=== PATIENT | male | born 1960 | race Caucasian/White ===

== ENCOUNTER 2018-10-28 10:36 | Inpatient (IN) ==
[2018-10-28] MEDS ORDERED: RAPID SEQUENCE INDUCTION BAG ONE (10:37)
[2018-10-28] MEDS ORDERED: ALBUT/IPRATROP 3MG/0.5MG NEB 3 ML VIAL ONE (10:37)
[2018-10-28] MEDS ORDERED: ALBUTEROL 0.083% NEBU SOLN 3 ML VIAL NEB STA (10:38)
[2018-10-28] MEDS ORDERED: IPRATROPIUM BROMIDE NEB SOLN 0.02% 2.5 ML VIAL NEB STA (10:38)
[2018-10-28] MEDS ORDERED: MAGNESIUM SULFATE 1GM / D5W BAG IV ONE (10:38)
[2018-10-28] MEDS: MAGNESIUM SULFATE / D5W 1 GM/100 ML BAG IV SCH ×2 (10:45→11:00)
[2018-10-28 11:03] LABS: Basophils # (auto) 0.03 K/uL (0-0.2); Basophils % (auto) 0.1 %; Eosinophils # (auto) 0.06 K/uL (0-0.5); Eosinophils % (auto) 0.3 %; Hemoglobin 15.5 g/dL (14.0-18.0); Immature Granulocytes # (auto) 0.08 K/uL (0.00-0.02); Immature Granulocytes % (auto) 0.4 %; Lymphocytes # (auto) 2.63 K/uL (1.2-3.4); Lymphocytes % (auto) 12.8 %; Mean Corpuscular Hgb Conc 33.7 g/dL (32-36); Mean Corpuscular Volume 89.1 fL (80-100); Mean Platelet Volume 9.4 fL (7.4-10.4); Monocytes # (auto) 2.25 K/uL (0.11-0.59); Monocytes % (auto) 10.9 %; Neutrophils # (auto) 15.55 K/uL (1.4-6.5); Neutrophils % (auto) 75.5 %; Platelet Count 226 K/uL (130-400); RDW Standard Deviation 45.9 fL (36.4-46.3); Red Blood Count 5.16 M/uL (4.7-6.1)
[2018-10-28] MEDS ORDERED: PROPOFOL IV EMULSION 10 MG/ML 100 ML VIAL IV ONE (11:08)
[2018-10-28 11:19] LABS: BUN Creatinine Ratio 8.1 (10-20); Blood Urea Nitrogen 6 mg/dl (7-18); Calcium 9.1 mg/dl (8.5-10.1); Carbon Dioxide 30 mmol/L (21-32); Chloride 99 mmol/L (98-107); Creatinine Clr Calc Pharmacy 107.3 ml/min; Est GFR (African American) 120.7; Est GFR (Non-African American) 104.2; Glucose 154 mg/dl (70-99); INR 1.1 (0.9-1.1); Partial Thromboplastin Ratio 1.1; Partial Thromboplastin Time 30.6 Seconds (21.0-31.0); Potassium 3.8 mmol/L (3.5-5.1); Sodium 136 mmol/L (136-145)
[2018-10-28] MEDS ORDERED: Nursing to Pharmacy Communication ONE (11:20)
--- NOTE | 2018-10-28 11:20 | XRay Report ---
XR chest 1V portable HISTORY: ETT placement COMPARISON: Chest 10/28/2018. FINDINGS: The endotracheal tube terminates approximate 5 cm from the feliciano. No pneumothorax. No pleu ral effusions. The heart is normal in size. Mild diffuse interstitial thickening is again noted. This demonstrates an upper lobe predominant reticulonodular pattern. IMPRESSION: 1. Endotracheal tube terminates 5 cm from the feliciano. 2. Reticulonodular interstitial thickening with upper lobe predominance. This could be due to chronic interstitial process or an atypical pneumonitis. Electronically signed by: Rodrigo Hobbs M.D. 10/28/2018 11:19 AM
[2018-10-28 11:23] LABS: Troponin I < 0.015 ng/ml (0-0.045)
[2018-10-28] MEDS ORDERED: fentaNYL DRIP 1,250 MCG/250 ML BAG IV SCH (11:24)
--- NOTE | 2018-10-28 11:25 | XRay Report ---
XR chest 1V portable CLINICAL HISTORY: Shortness of breath COMPARISON STUDY: No previous studies for comparison. FINDINGS: The heart is normal in size. There is reticulonodular interstitial thickening with an upper lung zone predominance. This is of uncertain chronicity. There is no failure. There are no pleural e ffusions.[ IMPRESSION: Reticulonodular interstitial thickening with an upper lung zone predominance. Electronically signed by: Zi Hansen M.D. 10/28/2018 11:23 AM
[2018-10-28] MEDS ORDERED: ALBUT/IPRATROP 3MG/0.5MG NEB 3 ML VIAL NEB STA (11:37)
--- NOTE | 2018-10-28 11:37 | Critical Care Consultation ---
Date of Consultation October 28, 2018 Assessment & Plan (1) Admitted to intensive care unit: Saeed Corral is a 58 y/o male with history of asthma and current smoker, who presented for dyspnea requiring intubation with mechanical ventilation. Neuro Reviewed PDMP, gets Dilaudid for pain pump; daily Morphine equivalent is 15.67. Propofol Cardiac/Vascular Review of [employer] EMR - most recent records from 2014, but listed is a diagnosis of HTN Pulm CTA chest to rule out PE in ED prior to transfer to ICU. Currently on mechanical ventilator Solumedrol 40mg q6h Will treat as COPD exacerbation GI Ranitidine 50mg IV q8h Renal/Lytes Creatinine WNL No significant electrolyte abnormalities [place] in place Endo Hx DM2 from chart review hyperglycemic management per unit protocol Heme Leukocytosis on presentation most likely demargination from stress CBC otherwise unremarkable ID Ceftriaxone 1gm q24h and Levaquin 750mg q24h ordered Lines 20g right AC 18g left AC DVT ppx: lovenox 40mg qday Resuscitation status - Full Code Supervising Physician Co-Signing Physician Notes Dr. Perkins was resident physician during care of patient. I separately evaluated patient for vieyra portions of the history and the exam. I was present during the critical portion of medical decision making, and I discussed the case with the resident. I generally agree with the findings and plan. Patient has a history of reactive airway disease, continued tobacco abuse. I am empirically starting him on Rocephin and Levaquin as well as steroids. I consented the patient's via telephone for bronchoscopy. I was informed he is increasing tenacity of his secretions being suctioned. Therefore we proceeded with bronchoscopy and obtained a BAL specimen. I am still treating him for possible community-acquired pneumonia and checking for possible influenza which I think is still unlikely but warrants further evaluation. I have personally spent 45 minutes of critical care time in the direct management of this patient. This is a life/limb threatening event. This includes time spent evaluating patient, direct bedside care, chart review, placing orders, interpretation of diagnostic studies, discussion with consultan ts, patient, and/or family members regarding treatment decisions, as well as other required patient management activities. This time is exclusive of all separately billable procedures, and teaching time and separate from and in addition to any other critical care service time. History of Present Illness Reason for Consultation: Acute respiratory failure History of Present Illness History Limited by: Mechanical Ventilation. History provided by ED staff, patient presented with dyspnea. Endorsed smoking history and also endorsed no prior intubations or hospitalizations for asthma. Allergies Allergy/AdvReac Type Severity Reaction Status Date / Time Penicillins Allergy Unknown Verified 10/28/18 12:06 Home Medications Home Medications Medication Instructions Recorded Confirmed Type pastyyuuwvx-csrihdqir-jdroxews 1 inh INHALATION DAILY 10/28/18 10/28/18 History [Trelegy Ellipta] Patient History Medical History Failed back syndrome of thoracic spine (Chronic) Chronic pain (Chronic) COPD (chronic obstructive pulmonary disease) (Chronic) Tobacco abuse (Chronic) Surgical History History of hernia repair (Chronic) History of back surgery (Chronic) T6-7 Laminectomy History of cholecystectomy (Chronic) Family History Mother Diabetes Hypertension Father No problems noted. Social History Preferred Language: Bangladeshi Communication Ability: Effective Communication Ability Comment: pt intubated Beliefs That Will Affect Care: None marital status: Current Living Situation: Spouse and Family current occupational status: employed current occupation: [email or web address] Other Information That Helps Us Care for You: No Feels Safe at Home: Yes Smoking Status: Current every day smoker Tobacco Type: cigarettes Age Started Using Tobacco: 16 packs per day: 1 Years Smoked: 40 Cigarettes Per Day: 20 Do You Dip or Chew Tobacco: No Second Hand Exposure: Yes Tobacco Cessation Education Requested by Patient: No Hx Alcohol Use: No Hx Substance Use: No Review of Systems Review of Systems: Unobtainable due to endotracheal tube Physical Exam Constitutional: + mechanically ventilated Neck: normal visual inspection and trachea midline Respiratory: Auscultation: + diminished lung sounds and + wheezes (diffuse) Cardiovascular: Rate/Rhythm: regular rate and regular rhythm Extremities: no pedal edema Gastrointestinal (Abdomen): RLQ old well healed surgical scar with palpable chief medical physicist subq appears consistent with pain pump. Skin: no rashes, warm and dry Neurologic: In ED, does not open eyes to voice. Psychiatric: unable to assess Results & Data Vital Signs (Past 12 Hours) Vital Signs Pulse Pulse Resp BP BP Pulse Ox 10/28/18 11:10 110 H 179/104 H 98 10/28/18 11:04 100 10/28/18 10:55 120 H 22 124/88 100 10/28/18 10:46 22 155/108 H 100 PG Care Time/CCT Total # of Minutes Spent Total Time Spent: 45 Total Time Spent with Patient: Total time spent is greater than 50% in coordination of care (as documented) at patient's floor/unit and/or counseling patient:
[2018-10-28] MEDS ORDERED: DEXTROSE 50% 50 ML SYRINGE IV PRN (11:44)
[2018-10-28] MEDS ORDERED: GLUCAGON FOR INJ 1 MG VIAL SQ PRN (11:44)
[2018-10-28] MEDS ORDERED: CARBOHYDRATES FOR HYPOGLYCEMIA PO PRN (11:44)
[2018-10-28] MEDS ORDERED: LEVALBUTEROL HCL 1.25 MG/3 ML NEB INH PRN (11:44)
[2018-10-28] MEDS ORDERED: GLUCOSE 10 TABS/TUBE PO PRN (11:44)
[2018-10-28] MEDS ORDERED: GLUCOSE 40% GEL 15 GM TUBE PO PRN (11:44)
[2018-10-28] MEDS ORDERED: PHARMACY GLYCEMIC MGMT CONSULT PRN (11:52)
[2018-10-28 12:08] LABS: iSTAT Venous Carbon Dioxide 31 mEq/l (24-31)
[2018-10-28] MEDS ORDERED: OPTIRAY 320 125ml IV PRN (12:25)
[2018-10-28] MEDS ORDERED: LORazepam 2 MG/4 ML VIAL IV STA (12:39)
[2018-10-28] MEDS ORDERED: LORazepam 2 MG/4 ML VIAL ONE (12:40)
--- NOTE | 2018-10-28 12:40 | History & Physical Report ---
Date of Service October 28, 2018 Assessment & Plan (1) Admitted to intensive care unit: (2) Acute respiratory failure: (3) Acute respiratory acidosis: (4) COPD exacerbation: This is 58 yr old M who has a known PMH of COPD, tobacco abuse, chronic back pain with pain pump who presents to [facility] ED in acute respiratory distress. Pt required intubation and mechanical ventilation upon arrival to ED Initial lab work reveals leukocytosis WBC 20.60k, H&H stable at 15.5 and 46.0, platelet 226, VBG pH 7.25, VBG PCO2 67 consistent with respiratory acidosis, elevated glucose 154 his troponin was WNL. Chest x-ray revealed reticulonodular interstitial thickening with upper lobe predominance which could represent chronic interstitial process or an atypical pneumonitis Per current CMS guidelines patient met SIRS criteria on arrival due to leukocytosis of 20,000, tachycardia, and tachypnea tachycardia/tachypnea likely in setting of acute respiratory failure; however sepsis not entirely ruled out Blood cultures and lactic acid ordered He has known history of recurrent pneumonia the past 3 to 4 years per CTA chest pending to rule out possible pneumonia Pt admitted to ICU under service of Service Or Work Dispatcher Chief Dr. Gooden, please refer to his documentation for further details regarding assessment and plan will obtain further records from Pending sale to [facility] and PCP Dr. Garcia (5) Tobacco abuse: Per patient smokes 1 pack/day for approximately [address] on nicotine patch (6) Chronic pain: pain pump RLQ PDMP reviewed gets Dilaudid for pain pump; daily Morphine equivalent is 15.67 (7) DVT prophylaxis: Lovenox Disposition: to be determined Follow up: PCP Dr. Jerson Garcia in [place], [place] Patient was seen and examined in collaboration with Dr. Coe, please see addendum Starting 10/29/2018 patient be under the care of Dr. Farmer History of Present Illness Chief Complaint: Status Asthmaticus Primary Care Provider: Jerson Garcia MD This is 58 yr old M who has a known PMH of COPD, tobacco abuse, chronic back pain with pain pump who presents to [facility] ED in acute respiratory distress. Pt was at home when approx at 8am he developed worsening SOB. His SOB started yesterday. Son at home contacted EMS. He received multiple nebulizer tx and methylprednisolone inj 125mg while in field. Place on CPAP with no relief. When arrived at ED he was still noticably dyspneic despite 2 rounds of duonebs which prompted staff to intubate. Hx obtain from . Unable to obtain hx or ROS from patient. According to this isn't, "new." He has required multiple hospitalization in past 3-4 years at [facility] and [facility] due to acute respiratory failure and PNA, but never required intubation. denies pt has pmh of HTN, T2DM, CAD, CVA. He lives at home with , [place], +tobacco abuse for 40 years, 1ppd, no elicit drug use Past surgeries including T6-7 laminectomy, cholecystectomy, hernia repair, pain pump FH: Mother and father both still living. Mother +HTN and DM; Father PMH unknown Allergies Allergy/AdvReac Type Severity Reaction Status Date / Time Penicillins Allergy Unknown Verified 10/28/18 12:06 Home Medications Home Medications Medication Instructions Recorded Confirmed Type bbbaannpntk-cmutgcrnt-kgyifckn 1 inh INHALATION DAILY 10/28/18 10/28/18 History [Elzbieta Weinberg] Past Med/Surg History Medical History Failed back syndrome of thoracic spine (Chronic) Chronic pain (Chronic) COPD (chronic obstructive pulmonary disease) (Chronic) Tobacco abuse (Chronic) Surgical History History of hernia repair (Chronic) History of back surgery (Chronic) T6-7 Laminectomy History of cholecystectomy (Chronic) Family History Mother Diabetes Hypertension Father No problems noted. Social History Preferred Language: Bhutanese Communication Ability: Effective Communication Ability Comment: pt intubated Beliefs That Will Affect Care: None marital status: Current Living Situation: Spouse and Family current occupational status: employed current occupation: [employer] Other Information That Helps Us Care for You: No Feels Safe at Home: Yes Smoking Status: Current every day smoker Tobacco Type: cigarettes Age Started Using Tobacco: 16 packs per day: 1 Years Smoked: 40 Cigarettes Per Day: 20 Do You Dip or Chew Tobacco: No Second Hand Exposure: Yes Tobacco Cessation Education Requested by Patient: No Hx Alcohol Use: No Hx Substance Use: No Review of Systems Review of Systems: Unobtainable due to endotracheal tube and Unobtainable due to reduced consciousness Physical Exam Physical Exam: Gen: WD/WN, M, lying in bed, + Intubated Head: Normocephalic, Atraumatic Eyes: Sclera normal, no conjunctival injection ENT: +ET Tube, unable to assess oropharnyx Neck: no JVD, Bruit, trachea midline Resp: chest normal to inspection. Clear to auscultation b/l with diminished breath sounds b/l, +intubated. Normal insp/exp effort, no accessory muscle use CV: tachycardic rate, regular rhythm, no murmur, rub, gallop, or ectopy Abd: RLQ scar noted, palpable device consistent with pain pump, +BS x 4, soft, nontender, nondistended Musculoskeletal:extremities x 4 normal to inspection Extremities: No edema bilaterally Skin: warm, moist, no rash, negative turgor, cap refill < 2sec Neuro: sedated, intubated doesn't respond to verbal stimuli : deferred Results & Data Vital Signs (Past 12 Hours) Vital Signs Pulse Pulse Resp BP BP Pulse Ox 10/28/18 11:49 113 H 20 166/97 H 95 10/28/18 11:32 108 H 20 99 10/28/18 11:10 110 H 179/104 H 98 10/28/18 11:04 100 10/28/18 10:55 120 H 22 124/88 100 10/28/18 10:46 22 155/108 H 100 10/28/18 10:45 122 H 122 H 30 H 97 Laboratory Results Short CBC 10/28/18 Range/Units 10:51 WBC 20.60 H (4.8-10.8) K/uL Hgb 15.5 (14.0-18.0) g/dL Hct 46.0 (42-52) % Plt Count 226 (130-400) K/uL BMP 10/28/18 10:51 Sodium 136 Potassium 3.8 Chloride 99 Carbon Dioxide 30 BUN 6 L Creatinine 0.71 Glucose 154 H Calcium 9.1 Cardiac Enzymes 10/28/18 Range/Units 10:51 Troponin I < 0.015 (0-0.045) ng/ml Diagnostic Findings CXR: IMPRESSION: 1. Endotracheal tube terminates 5 cm from the feliciano. 2. Reticulonodular interstitial thickening with upper lobe predominance. This could be due to chronic interstitial process or an atypical pneumonitis. Medications Administered Magnesium Sulfate/Dextrose (Magnesium Sulfate / D5w) 1 gm in 100 mls @ 100 mls/hr IV Q1H TARI Stop: 10/28/18 12:44 Last Infusion: 10/28/18 11:15 Dose: 0 mls/hr Documented by: [id number] Admin: 10/28/18 11:00 Dose: 100 mls/hr Documented by: [id number] Infusion: 10/28/18 11:00 Dose: 0 mls/hr Documented by: [id number] Admin: 10/28/18 10:45 Dose: 100 mls/hr Documented by: [id number] Fentanyl Citrate (Fentanyl Drip) 1,250 mcg in 250 mls @ 5 mls/hr IV .Q24H TARI; Protocol Stop: 11/11/18 11:23 Last Admin: 10/28/18 11:24 Dose: 25 mcg/hr, 5 mls/hr Documented by: [id number] Cosigned by: [id number] Ioversol (Optiray 320 125ml) 120 ml IV ONCE PRN PRN Reason: Interaction Checking Stop: 11/01/18 12:24 Last Admin: 10/28/18 12:26 Dose: 120 ml Documented by: [id number] Discontinued Medications Albuterol (Ventolin 0.083% 2.5mg/3ml) 2.5 mg NEB NOW STA Stop: 10/28/18 10:39 Last Admin: 10/28/18 11:36 Dose: Not Given Documented by: [id number] Ipratropium West (Atrovent 0.02% 0.5mg/2.5ml) 1 mg NEB NOW STA Stop: 10/28/18 10:39 Last Admin: 10/28/18 11:36 Dose: Not Given Documented by: [id number] Magnesium Sulfate/Dextrose (Magnesium Sulfate / D5w) Confirm Administered Dose 2 gm IV .STK-MED ONE Stop: 10/28/18 10:39 Last Admin: 10/28/18 10:42 Dose: 2 gm Documented by: [id number] Miscellaneous () Confirm Administered Dose 1 ea .ROUTE .STK-MED ONE Stop: 10/28/18 10:38 Last Admin: 10/28/18 11:04 Dose: 1 ea Documented by: [id number] Miscellaneous Information (Nursing To Pharmacy Communication) 1 ea N/A ONE ONE Stop: 10/28/18 11:21 Last Admin: 10/28/18 11:24 Dose: 1 ea Documented by: [id number] Propofol (Diprivan) Confirm Administered Dose 1,000 mg IV .STK-MED ONE Stop: 10/28/18 11:09 Last Admin: 10/28/18 11:14 Dose: 1,000 mg Documented by: [id number] Cosigned by: [id number] ECG Rate (beats per minute): 116 Rhythm: sinus tachycardia Findings: + nonspecific-ST abn Code Status & VTE Plan Code Status Full Code VTE Prophylaxis Plan VTE Prophylaxis will be ordered: Yes Supervising Physician Co-Signing Physician Notes I have seen and examined the patient and have discussed the case with the provider above. I agree with the assessment and plan as stated. Mr. An is a lifelong smoker who still actively smoking and has had a recurrent issue with pneumonia over the past 3 to 4 years per his . He presented today after EMS was called to his home for acute respiratory distress. CPAP and nebulizers were attempted in the field without success and he was continuing to tire in the ER. Additional BiPAP and nebulizers were attempted however he ultimately was intubated. Little history could be taken prior to this and the majority of history was gathered from his . At this time he is intubated and sedated on propofol and is unable to give a history. Physical exam reveals hypotension secondary to propofol. He is intubated and sedated. Coarse rhonchi heard on auscultation of bilateral lung ramos. S1 and S2 were heard without evidence of murmur, gallop or rub. Abdomen was soft and nondistended. Pupils are equal and reactive to light. Skin is warm and dry and without jaundice. Assessment includes acute respiratory failure secondary to COPD exacerbation in the setting of active smoking. Continue mechanical ventilation and nicotine patch. Cont IV Solumedrol and antibiotics including Rocephin and Levaquin. Cont ICU monitoring. Family was updated at the bedside. DO Saravanan
--- NOTE | 2018-10-28 13:03 | CT Scan Report ---
CHEST CTA for PULMONARY ARTERIES CT DOSE: 526.04 mGycm HISTORY: Shortness of breath. TECHNIQUE: Multiaxial CT images of the chest were performed following the intravenous administration of contrast to evaluate the pulmonary arteries. Maximal intensity projection images were also obtaine d. A dose lowering technique was utilized adhering to the principles of ALARA. COMPARISON STUDY: None. FINDINGS: An intrathecal catheter is identified. The tip is looped at the T12 level. Endotracheal tub e terminates 4 cm from the feliciano. Posterior fusion defect at T8. No suspicious lytic or blastic osse ous lesions. Punctate calcification within the right hepatic lobe. The visualized spleen and adrenal glands are unremarkable. No pleural or pericardial effusions. The heart is normal in size. Normal eso phagus. Multiple mildly enlarged mediastinal and bilateral hilar lymph nodes. Dominant subcarinal lym ph node measures 2.2 x 1.3 cm. Dominant hilar lymph node on the right measures 1.4 x 1.2 cm. Normal c aliber thoracic aorta with no evidence for dissection. Nondiagnostic evaluation of the left lower lob e subsegmental pulmonary arteries due to the respiratory motion. Otherwise, no filling defects within the remaining pulmonary arteries to suggest pulmonary embolus. No pneumothorax. Diffuse tree-in-bud nodular opacities seen throughout the lungs with mild interstitial thickening. This demonstrates an u pper lobe predominance mild emphysema. Linear area of consolidation/atelectasis right upper lobe ante riorly. Partial opacification of the left lower lobe bronchi and bronchus intermedius with a small am ount of mucoid material. IMPRESSION: 1. No evidence for pulmonary embolus. 2. Mild mediastinal and bilateral hilar lymphadenopathy. There is also diffuse tree-in-bud nodular op acities demonstrating an upper lobe predominance and a linear area of consolidation within the right upper lobe anteriorly. This is nonspecific and can be seen in the setting of sarcoidosis, an atypical infectious process, or a panbronchiolitis. Bronchoscopy is recommended for further evaluation. 3. Small amount of mucoid material within the bronchi. 4. Emphysema. 5. Endotracheal tube terminates 4 cm from the feliciano. 6. An intrathecal catheter tip is looped at the T12 level. Electronically signed by: Rodrigo Hobbs M.D. 10/28/2018 1:02 PM
[2018-10-28] MEDS ORDERED: INSULIN GLARGINE SOLOSTAR 100 UNITS/ML 3 ML PEN SC ONE (13:30)
[2018-10-28] MEDS ORDERED: PROPOFOL 1,000 MG/100 ML VIAL IV STA (13:47)
[2018-10-28] MEDS ORDERED: ICU PROTOCOL FOR HYPERGLYCEMIA PRN (13:47)
[2018-10-28] MEDS ORDERED: fentaNYL citrate 100 MCG/2 ML VIAL IV PRN (13:47)
[2018-10-28] MEDS ORDERED: ROCURONIUM BROMIDE 10 MG/ML 10 ML VIAL IV ONE (13:55)
[2018-10-28] MEDS ORDERED: ETOMIDATE 2 MG/ML 20 ML VIAL IV ONE (13:55)
--- NOTE | 2018-10-28 15:31 | Pharmacy Report ---
Pharmacy Glycemic Short Note 2 - Date of Service October 28, 2018 - Glycemic Short BSG Results (Last 24 hours): 10/28/18 10/28/18 10:51 14:43 Glucose 154 H POC Glucose 197 H OUTPATIENT ANTIDIABETIC REGIMEN: * n/a; denied h/o DM * A1c = ? ASSESSMENT: * Patient being admitted to ICU due to respiratory failure secondary to asthma exac / COPD exac, respiratory acidosis requiring intubation in the ED * Will continue Cigarette Making Examiner's orders for 1st dose of Lantus and Novolog - reasonable starting points * Will adjust Novolog dosing frequency and BSGs to Q 4 hrs, will also continue Lantus BID but per sliding scale given uncertain h/o DM and current stressors * Will start insulin drip if BSG > 200 x 1 PLAN FOR INPATIENT GLYCEMIC CONTROL: * A1c with next lab draw * Basal insulin * Lantus 10 units x 1 then SQ BID per the following scale: * 0 units if less than 140 * 6 units if 140-200 * 10 units if > 200 (and begin IV insulin drip) * Bolus insulin * NovoLog per scale Q 4 hrs * Goal Range: Low 110 mg/dL - High 160 mg/dL * Correction Factor: 20 mg/dL/unit * Nutritional / Prandial insulin per carb ratio of 1 unit per 30 grams CHO consumed PLAN FOR DISCHARGE: * to be determined
--- NOTE | 2018-10-28 16:26 | XRay Report ---
XR KUB/Abdomen 1 view CLINICAL HISTORY: Verify OGT placement tube position COMPARISON STUDY: No previous studies for comparison. FINDINGS: Nasogastric tube within the distal gastric body. IMPRESSION: Nasogastric tube within the distal gastric body The above report was generated using voice recognition software. It may contain grammatical, syntax or spelling errors. Electronically signed by: Ken Hickman M.D. 10/28/2018 4:25 PM
[2018-10-28] MEDS ORDERED: INSULIN ASPART 100 UNITS/ML 3 ML PEN SC SCH (16:30)
[2018-10-28] MEDS: ENOXAPARIN INJ 40 MG/0.4 ML SYR SQ SCH (16:42)
[2018-10-28] MEDS: NICOTINE 21 MG/24 HR TDSY TD SCH (16:42)
[2018-10-28] MEDS: INSULIN ASPART 100 UNITS/ML 3 ML PEN SC SCH ×2 (16:47→20:13)
--- NOTE | 2018-10-28 17:29 | Emergency Department Note ---
Entered by Saeed Ruano acting as a scribe for History of Present Illness General Chief complaint: Shortness of Breath/Dyspnea Time Seen by Provider: 10/28/18 10:38 Source: EMS History of Present Illness Provider complaint: Shortness of breath Onset (ago): day(s) 1 Location: chest Pain Consistency: + constant and + other (Worsening) Relieved By: + none Exacerbated By: + none Associated symptoms: + other (Positive fatigue) The patient is a 58 year old male who presents to the Emergency Room via EMS with complaints of constant shortness of breath that started yesterday but bec julio worse this morning about 2 hours ago, per EMS. Per EMS, the patient started Mucinex and has bee complaining of itchiness, but his symptoms are not anaphylactic. En route the patient received 4 Albuterols, 1 Duoneb, and 125mg of Solumedrol. TThe patient notes he has a history of asthma but has never had to be intubated or brought to the ICU because of it. The patient is a smoker. HPI is limited secondary to the patient's clinical condition and respiratory distress. Home Medications Home Medications Medication Instructions Recorded Confirmed Type punqlhlqwmc-[id number]-tcqxsqon 1 inh INHALATION DAILY 10/28/18 10/28/18 History [Trelegy Ellipta] Allergies Allergy/AdvReac Type Severity Reaction Status Date / Time Penicillins Allergy Unknown Verified 10/28/18 12:06 Past Med/Surg History Medical History Failed back syndrome of thoracic spine (Chronic) Chronic pain (Chronic) COPD (chronic obstructive pulmonary disease) (Chronic) Tobacco abuse (Chronic) Surgical History History of hernia repair (Chronic) History of back surgery (Chronic) T6-7 Laminectomy History of cholecystectomy (Chronic) Family History Mother Diabetes Hypertension Father No problems noted. Social History Preferred Language: Grenadian Communication Ability: Effective Communication Ability Comment: pt intubated Beliefs That Will Affect Care: None marital status: Current Living Situation: Spouse and Family current occupational status: employed current occupation: [employer] Other Information That Helps Us Care for You: No Feels Safe at Home: Yes Smoking Status: Current every day smoker Tobacco Type: cigarettes Age Started Using Tobacco: 16 packs per day: 1 Years Smoked: 40 Cigarettes Per Day: 20 Do You Dip or Chew Tobacco: No Second Hand Exposure: Yes Tobacco Cessation Education Requested by Patient: No Hx Alcohol Use: No Hx Substance Use: No Review of Systems Other Unable to obtain due to the patient's respiratory distress and acute clinical presentation. Physical Exam Vital Signs Vital Signs - 24 hr 10/28/18 10:45 10/28/18 10:46 10/28/18 10:53 Sepsis Recent Fever Within 48 Hours No Sepsis New/Unexplained Change in Mental Status No Sepsis Action Taken by Nursing No Action Required Pulse Rate 122 H Pulse Rate [Apical] 122 H Pulse Rate from SpO2 Sensor Respiratory Rate 30 H 22 Respiratory Effort / Characteristics Spontaneous Accessory Muscle Use Labored Short of Breath Non-Labored Respiratory Depth Shallow Respiratory Pattern Tachypnea Blood Pressure 155/108 H Blood Pressure [Right Arm] Blood Pressure Mean 123 Blood Pressure Mean [Right Arm] Pulse Oximetry 97 100 Oxygen Delivery Method BiPAP BiPAP BiPAP Oxygen Flow Rate Fraction of Inspired Oxygen 100 10/28/18 10:55 10/28/18 11:04 10/28/18 11:06 Sepsis Recent Fever Within 48 Hours Sepsis New/Unexplained Change in Mental Status Sepsis Action Taken by Nursing Pulse Rate Pulse Rate [Apical] 120 H Pulse Rate from SpO2 Sensor Respiratory Rate 22 Respiratory Effort / Characteristics Respiratory Depth Respiratory Pattern Blood Pressure Blood Pressure [Right Arm] 124/88 Blood Pressure Mean Blood Pressure Mean [Right Arm] 100 Pulse Oximetry 100 100 Oxygen Delivery Method BiPAP Ambu-Bag Oxygen Flow Rate 100 Fraction of Inspired Oxygen 10/28/18 11:10 Sepsis Recent Fever Within 48 Hours Sepsis New/Unexplained Change in Mental Status Sepsis Action Taken by Nursing Pulse Rate 110 H Pulse Rate [Apical] Pulse Rate from SpO2 Sensor 117 H Respiratory Rate Respiratory Effort / Characteristics Respiratory Depth Respiratory Pattern Blood Pressure 179/104 H Blood Pressure [Right Arm] Blood Pressure Mean 129 Blood Pressure Mean [Right Arm] Pulse Oximetry 98 Oxygen Delivery Method Mechanical Vent Oxygen Flow Rate Fraction of Inspired Oxygen GENERAL: He appears distressed. Patient on CPAP HENT: Exam performed. - Head: Normocephalic and atraumatic. - Right Ear: External ear normal. No mastoid tenderness. - Left Ear: External ear normal. No mastoid tenderness. - Mouth/Throat: The oropharynx is clear and moist. No trismus in the jaw. No dental abscesses or uvula swelling. No oropharyngeal exudate or tonsillar abscesses. EYES: Conjunctivae and EOM are normal. Pupils are equal, round, and reactive to light. Right eye exhibits no discharge. Left eye exhibits no discharge. No scleral icterus. NECK: Supple CV: Tachycardic rate, regular rhythm, normal heart sounds and intact distal pulses. There is no peripheral edema. Palpable radial pulses bue. PULM/CHEST: Severe respiratory distress, tachypneic on CiPAP. Decreased breath sounds bilaterally, scant respiratory wheezing bilaterally. - Chest Wall: He exhibits no tenderness. ABD: Soft nontender. MUSC/SKEL: Normal range of motion. There is no peripheral edema, tenderness or deformity. LYMPH: No cervical adenopathy. NEURO: Motor and sensation grossly intact. SKIN: Skin is warm and dry. He is not diaphoretic. Procedures Intubation Time out performed: Yes sedative: Etomidate Mg Given: 20 paralytic: Rocuronium Mg Given: 70 Laryngoscope: Vicente (4) ET Tube Size: 7 ET Tube Uncuffed: No Tube Secured Depth (cm): 23 Tube Secured Location: lips Tube Placement Confirmation: visualized tube passing through cords, equal breath sounds bilaterally, no breath sounds over epigastrium and confirmation by capnometry Patient Tolerated Procedure: well Intubation Complications: none Course 1035: Past medical records reviewed. The patient was evaluated in room B01, and a complete history and physical examination were performed. Patient was switched to BiPAP. Received a total of 12.5 mg of albuterol, 0.5 mg of Atrovent, and 125 mg of Solu-Medrol in route to the emergency department. Patient will be given an additional dose of albuterol as well as Atrovent. Magnesium 2 g IV piggyback was also given for patient's acute respiratory distress. Patient states he has never been intubated or been in the intensive care unit in the past. When asked, he does state if needed he is okay with intubation. 1103: Patient's blood gas shows a venous pH 7.25, PCO2 of 67. The patient appears to be fatiguing on BiPAP and is becoming more lethargic. There is fear that the patient would fatigue out and thus I intubated the patient. See procedure note for more information. 1118: I spoke to Dr. Saravanan Corcoran Hospitalist about the patient's case and he is going to accept the patient for further evaluation. 1130: Dr. Berkley Cantrell [facility] [employer] Supervisor is here at bedside evaluating the patient before he goes to the ICU. I discussed the patient's case with him. We will obtain a CTA of the chest to rule out PE. Consultations Consultation #1: I spoke to Dr. Saravanan [facility] about the patient's case and he is going to accept the patient for further evaluation. Time: 11:18 Consultation #2: Dr. Berkley Cantrell [facility] [employer] Supervisor is here at bedside evaluating the patient before he goes to the ICU. I discussed the patient's case with him. We will obtain a CTA of the chest to rule out PE. Time: 11:30 Administered Medications Enoxaparin Sodium (Lovenox) 40 mg SQ QAM TARI Stop: 11/27/18 13:59 Last Admin: 10/28/18 16:42 Dose: 40 mg Documented by: [id number] Propofol (Diprivan) 1,000 mg in 100 mls @ 2.079 mls/hr IV .Q24H STA; Protocol Stop: 10/29/18 13:46 Last Admin: 10/28/18 16:39 Dose: 30 mcg/kg/min, 12.5 mls/hr Documented by: [id number] Cosigned by: [id number] Ranitidine HCl 50 mg/ Dextrose 102 mls @ 200 mls/hr IV Q8H TARI Stop: 11/27/18 13:59 Last Admin: 10/28/18 16:41 Dose: 200 mls/hr Documented by: [id number] Insulin Aspart (Novolog Flexpen) 0 units SC Q4 TARI Stop: 11/27/18 15:59 Last Admin: 10/28/18 16:47 Dose: 1 units Documented by: [id number] Cosigned by: [id number] Ioversol (Optiray 320 125ml) 120 ml IV ONCE PRN PRN Reason: Interaction Checking Stop: 11/01/18 12:24 Last Admin: 10/28/18 12:26 Dose: 120 ml Documented by: [id number] Nicotine (Nicoderm Cq) 21 mg TD QAM TARI Stop: 11/27/18 13:59 Last Admin: 10/28/18 16:42 Dose: Not Given Documented by: [id number] Discontinued Medications Albuterol (Duoneb) Confirm Administered Dose 6 ml .ROUTE .STK-MED ONE Stop: 10/28/18 10:38 Last Admin: 10/28/18 16:13 Dose: Not Given Documented by: [id number] Albuterol (Ventolin 0.083% 2.5mg/3ml) 2.5 mg NEB NOW STA Stop: 10/28/18 10:39 Last Admin: 10/28/18 11:36 Dose: Not Given Documented by: [id number] Albuterol (Duoneb) 6 ml NEB NOW STA Stop: 10/28/18 11:38 Last Admin: 10/28/18 10:45 Dose: 6 ml Documented by: [id number] Magnesium Sulfate/Dextrose (Magnesium Sulfate / D5w) 1 gm in 100 mls @ 100 mls/hr IV Q1H [facility] Stop: 10/28/18 12:44 Last Infusion: 10/28/18 11:15 Dose: 0 mls/hr Documented by: [id number] Admin: 10/28/18 11:00 Dose: 100 mls/hr Documented by: [id number] Infusion: 10/28/18 11:00 Dose: 0 mls/hr Documented by: [id number] Admin: 10/28/18 10:45 Dose: 100 mls/hr Documented by: [id number] Fentanyl Citrate (Fentanyl Drip) 1,250 mcg in 250 mls @ 20.8 mls/hr IV .Q12H2M TARI; Protocol Stop: 11/11/18 11:23 Last Titration: 10/28/18 13:49 Dose: 0 mcg/hr, 0 mls/hr Documented by: [id number] Titration: 10/28/18 12:46 Dose: 104 mcg/hr, 20.8 mls/hr Documented by: [id number] Admin: 10/28/18 11:24 Dose: 25 mcg/hr, 5 mls/hr Documented by: [id number] Cosigned by: [id number] Lorazepam (Ativan) 2 mg in 4 mls @ 4 mls/min IV NOW STA Stop: 10/28/18 12:40 Last Admin: 10/28/18 12:43 Dose: 4 mls/min Documented by: [id number] Insulin Glargine (Lantus Solostar Pen) 10 units SC ONE ONE Stop: 10/28/18 13:31 Last Admin: 10/28/18 16:35 Dose: 10 units Documented by: [id number] Cosigned by: [id number] Ipratropium Acton (Atrovent 0.02% 0.5mg/2.5ml) 1 mg NEB NOW STA Stop: 10/28/18 10:39 Last Admin: 10/28/18 11:36 Dose: Not Given Documented by: [id number] Lorazepam (Ativan) Confirm Administered Dose 2 mg .ROUTE .STK-MED ONE Stop: 10/28/18 12:41 Last Admin: 10/28/18 12:46 Dose: Not Given Documented by: [id number] Magnesium Sulfate/Dextrose (Magnesium Sulfate / D5w) Confirm Administered Dose 2 gm IV .STK-MED ONE Stop: 10/28/18 10:39 Last Admin: 10/28/18 10:42 Dose: 2 gm Documented by: [id number] Miscellaneous () Confirm Administered Dose 1 ea .ROUTE .STK-MED ONE Stop: 10/28/18 10:38 Last Admin: 10/28/18 11:04 Dose: 1 ea Documented by: [id number] Miscellaneous Information (Nursing To Pharmacy Communication) 1 ea N/A ONE ONE Stop: 10/28/18 11:21 Last Admin: 10/28/18 11:24 Dose: 1 ea Documented by: [id number] Propofol (Diprivan) Confirm Administered Dose 1,000 mg IV .STK-MED ONE Stop: 10/28/18 11:09 Last Admin: 10/28/18 11:14 Dose: 1,000 mg Documented by: [id number] Cosigned by: [id number] Medical Decision Making Medical Records Attestation: I reviewed the patient's medical records. Home Medications Current Medication List: was personally reviewed by me Laboratory Data Attestation: I reviewed the patient's lab results. Result diagrams: 10/28/18 10:51 10/28/18 10:51 Lab Results 10/28/18 10/28/18 10/28/18 Range/Units 10:51 10:51 10:51 WBC 20.60 H (4.8-10.8) K/uL RBC 5.16 (4.7-6.1) M/uL Hgb 15.5 (14.0-18.0) g/dL Hct 46.0 (42-52) % MCV 89.1 (80-100) fL MCH 30.0 (25-34) pg MCHC 33.7 (32-36) g/dL RDW Std Deviation 45.9 (36.4-46.3) fL RDW Coeff of Nilo 14.0 (11.5-14.5) % Plt Count 226 (130-400) K/uL MPV 9.4 (7.4-10.4) fL Immature Gran % (Auto) 0.4 % Neut % (Auto) 75.5 % Lymph % (Auto) 12.8 % Meeker % (Auto) 10.9 % Eos % (Auto) 0.3 % Baso % (Auto) 0.1 % Immature Gran # (Auto) 0.08 H (0.00-0.02) K/uL Neut # (Auto) 15.55 H (1.4-6.5) K/uL Lymph # (Auto) 2.63 (1.2-3.4) K/uL Meeker # (Auto) 2.25 H (0.11-0.59) K/uL Eos # (Auto) 0.06 (0-0.5) K/uL Baso # (Auto) 0.03 (0-0.2) K/uL PT 11.0 (9.0-12.0) Seconds INR 1.1 (0.9-1.1) APTT 30.6 (21.0-31.0) Seconds PTT Ratio 1.1 POC VBG pH (7.36-7.41) POC VBG pCO2 (38-50) mmHg POC VBG pO2 (30-55) mmHg POC VBG HCO3 (23-28) meq/L POC VBG Total CO2 (24-31) mEq/l POC VBG Base Excess meq/L Sodium 136 (136-145) mmol/L Potassium 3.8 (3.5-5.1) mmol/L Chloride 99 (98-107) mmol/L Carbon Dioxide 30 (21-32) mmol/L Anion Gap 6.0 (3-11) BUN 6 L (7-18) mg/dl Creatinine 0.71 (0.6-1.4) mg/dl Est Cr Clr Drug Dosing 107.3 ml/min Est GFR ( Amer) 120.7 Est GFR (Non-Af Amer) 104.2 BUN/Creatinine Ratio 8.1 L (10-20) Glucose 154 H (70-99) mg/dl Calcium 9.1 (8.5-10.1) mg/dl Troponin I < 0.015 (0-0.045) ng/ml 10/28/18 Range/Units 10:51 WBC (4.8-10.8) K/uL RBC (4.7-6.1) M/uL Hgb (14.0-18.0) g/dL Hct (42-52) % MCV (80-100) fL MCH (25-34) pg MCHC (32-36) g/dL RDW Std Deviation (36.4-46.3) fL RDW Coeff of Nilo (11.5-14.5) % Plt Count (130-400) K/uL MPV (7.4-10.4) fL Immature Gran % (Auto) % Neut % (Auto) % Lymph % (Auto) % Meeker % (Auto) % Eos % (Auto) % Baso % (Auto) % Immature Gran # (Auto) (0.00-0.02) K/uL Neut # (Auto) (1.4-6.5) K/uL Lymph # (Auto) (1.2-3.4) K/uL Meeker # (Auto) (0.11-0.59) K/uL Eos # (Auto) (0-0.5) K/uL Baso # (Auto) (0-0.2) K/uL PT (9.0-12.0) Seconds INR (0.9-1.1) APTT (21.0-31.0) Seconds PTT Ratio POC VBG pH 7.25 L (7.36-7.41) POC VBG pCO2 67 H (38-50) mmHg POC VBG pO2 32 (30-55) mmHg POC VBG HCO3 29 H (23-28) meq/L POC VBG Total CO2 31 (24-31) mEq/l POC VBG Base Excess 2.0 meq/L Sodium (136-145) mmol/L Potassium (3.5-5.1) mmol/L Chloride (98-107) mmol/L Carbon Dioxide (21-32) mmol/L Anion Gap (3-11) BUN (7-18) mg/dl Creatinine (0.6-1.4) mg/dl Est Cr Clr Drug Dosing ml/min Est GFR ( Amer) Est GFR (Non-Af Amer) BUN/Creatinine Ratio (10-20) Glucose (70-99) mg/dl Calcium (8.5-10.1) mg/dl Troponin I (0-0.045) ng/ml Imaging Data Radiologist's Impression: Radiology results as stated below per my review and the radiologist's interpretation: XR chest 1V portable HISTORY: ETT placement COMPARISON: Chest 10/28/2018. FINDINGS: The endotracheal tube terminates approximate 5 cm from the feliciano. No pneumothorax. No pleural effusions. The heart is normal in size. Mild diffuse interstitial thickening is again noted. This demonstrates an upper lobe predominant reticulonodular pattern. IMPRESSION: 1. Endotracheal tube terminates 5 cm from the feliciano. 2. Reticulonodular interstitial thickening with upper lobe predominance. This could be due to chronic interstitial process or an atypical pneumonitis. Electronically signed by: Rodrigo Hobbs M.D. 10/28/2018 11:19 AM XR chest 1V portable CLINICAL HISTORY: Shortness of breath COMPARISON STUDY: No previous studies for comparison. FINDINGS: The heart is normal in size. There is reticulonodular interstitial thickening with an upper lung zone predominance. This is of uncertain chronicity. There is no failure. There are no pleural effusions.[ IMPRESSION: Reticulonodular interstitial thickening with an upper lung zone predominance. Electronically signed by: Zi Hansen M.D. 10/28/2018 11:23 AM CHEST CTA for PULMONARY ARTERIES CT DOSE: 526.04 mGycm HISTORY: Shortness of breath. TECHNIQUE: Multiaxial CT images of the chest were performed following the intravenous administration of contrast to evaluate the pulmonary arteries. Maximal intensity projection images were also obtained. A dose lowering technique was utilized adhering to the principles of ALARA. COMPARISON STUDY: None. FINDINGS: An intrathecal catheter is identified. The tip is looped at the T12 level. Endotracheal tube terminates 4 cm from the feliciano. Posterior fusion defect at T8. No suspicious lytic or blastic osseous lesions. Punctate calcification within the right hepatic lobe. The visualized spleen and adrenal glands are unremarkable. No pleural or pericardial effusions. The heart is normal in size. Normal esophagus. Multiple mildly enlarged mediastinal and bilateral hilar lymph nodes. Dominant subcarinal lymph node measures 2.2 x 1.3 cm. Dominant hilar lymph node on the right measures 1.4 x 1.2 cm. Normal caliber thoracic aorta with no evidence for dissection. Nondiagnostic evaluation of the left lower lobe subsegmental pulmonary arteries due to the respiratory motion. Otherwise, no filling defects within the remaining pulmonary arteries to suggest pulmonary embolus. No pneumothorax. Diffuse tree-in-bud nodular opacities seen throughout the lungs with mild interstitial thickening. This demonstrates an upper lobe predominance mild emphysema. Linear area of consolidation/atelectasis right upper lobe anteriorly. Partial opacification of the left lower lobe bronchi and bronchus intermedius with a small amount of mucoid material. IMPRESSION: 1. No evidence for pulmonary embolus. 2. Mild mediastinal and bilateral hilar lymphadenopathy. There is also diffuse tree-in-bud nodular opacities demonstrating an upper lobe predominance and a linear area of consolidation within the right upper lobe anteriorly. This is nonspecific and can be seen in the setting of sarcoidosis, an atypical infectious process, or a panbronchiolitis. Bronchoscopy is recommended for further evaluation. 3. Small amount of mucoid material within the bronchi. 4. Emphysema. 5. Endotracheal tube terminates 4 cm from the feliciano. 6. An intrathecal catheter tip is looped at the T12 level. Electronically signed by: Rodrigo Hobbs M.D. 10/28/2018 1:02 PM ECG Data Attestation: I personally reviewed and interpreted this ECG as follows: Indication: SOB/dyspnea Rate (beats per minute): 116 Rhythm: normal sinus Findings: + other ([place], QRS, QTC intervals WNL; Poor baseline due to respiratory distress and patient movement); no ST depression and no ST elevation Blood Pressure Blood Pressure Findings: Low blood pressure Blood Pressure Disposition: further management by hospitalist A[place] Narrative 1035: Past medical records reviewed. The patient was evaluated in room B01, and a complete history and physical examination were performed. Patient was switched to BiPAP. Received a total of 12.5 mg of albuterol, 0.5 mg of Atrovent, and 125 mg of Solu-Medrol in route to the emergency department. P atient will be given an additional dose of albuterol as well as Atrovent. Magnesium 2 g IV piggyback was also given for patient's acute respiratory distress. Patient states he has never been intubated or been in the intensive care unit in the past. When asked, he does state if needed he is okay with intubation. 1103: Patient's blood gas shows a venous pH 7.25, PCO2 of 67. The patient appears to be fatiguing on BiPAP and is becoming more lethargic. There is fear that the patient would fatigue out and thus I intubated the patient. See procedure note for more information. 1118: I spoke to Dr. Saravanan Corcoran Hospitalist about the patient's case and he is going to accept the patient for further evaluation. 1130: Dr. Gooden - [facility] [employer] Supervisor is here at bedside evaluating the patient before he goes to the ICU. I discussed the patient's case with him. We will obtain a CTA of the chest to rule out PE. Impression & Plan Acute respiratory failure, Asthmaticus, status Critical Care Time Critical Care Time: Yes Total Critical Care Time: 57 I have personally spent greater than 57 minutes of critical care time in the direct management of this patient. This includes bedside care, interpretation of diagnostic studies, and testing, discussion with consultants, patient, and family members, and other required patient management activities. This 57 minutes is in excess of all separately billable procedures. Discharge Plan Visit Data *Final* Discharge Date/Time: 10/28/18 13:02 Chief Complaint: Shortness of Breath/Dyspnea ED Provider: Rosas Jerry Discharge Problem: Acute respiratory failure, Asthmaticus, status Patient Disposition: Admitted As Inpatient Discharge Instructions Interventions: ED Discharge Assessment Last Done: 10/28/18 13:02 Discharge Problem: Acute respiratory failure Qualifiers: Respiratory failure complication: hypoxia Qualified Code(s): J96.01 - Acute respiratory failure with hypoxia Asthmaticus, status Qualifiers: Asthma severity: unspecified severity Asthma persistence: unspecified Qualified Code(s): J45.902 - Unspecified asthma with status asthmaticus The scribe's documentation has been prepared under my direction and personally reviewed by me in its entirety. I confirm that the note above accurately reflects all work, treatment, procedures, and medical decision making performed by me.
[2018-10-28] MEDS: methylPREDNISolone 40 MG in SYRINGE 0 ML IV SCH (19:57)
[2018-10-28] MEDS: cefTRIAXone SODIUM 1,000 MG in DEXTROSE 5% 50 ML IV SCH (19:57)
[2018-10-28] MEDS: INSULIN GLARGINE SOLOSTAR 100 UNITS/ML 3 ML PEN SC SCH (20:05)
[2018-10-28] MEDS: NORMOSOL-R 1,000 ML IV SCH (20:12)
[2018-10-28] MEDS: LEVOFLOXACIN/D5W 750 MG/150 ML BAG IV SCH (20:15)
[2018-10-28] MEDS ORDERED: HYDROmorphone INJ 1 MG/ML SYRINGE IV STA (22:16)
--- NOTE | 2018-10-28 22:35 | Procedure Note ---
Procedure Note Date of Service October 28, 2018 Procedure: Flexible Bronchoscopy Attending/Egg Trayer: Dr. Gooden, Pankaj Cruz PA-C Anesthetic/Sedation: Propofol gtt, 1mg IV Dilaudid push Indication: Copious secretions in the setting of respiratory failure requiring endotracheal intubation with mechanical ventilation. Consent was signed and placed on the chart prior to procedure. Indication, risks, and benefits were explained at length. A time-out was completed verifying correct patient, procedure, site, positioning, and implant(s) or special equipment if applicable. After IV dose of Dilaudid, fiberoptic bronchoscope was passed through the ET Tube atraumatically. ET Tube noted to appropriately set above the feliciano. Lidocaine was instilled to the lungs to aid in anesthesia and reduce coughing. After adequate administration, the LEFT lung ramos were viewed and demonstrated no significant findings. Specifically, no significant mucosal degradation or purulent discharge/drainage. The RIGHT lung ramos were then assessed. BAL of the RLL was achieved using 20mL of NSS x2 to the RLL. Samples were obtained and sent to lab. Views of the RML/RLL with findings of hyperemic mucosal tissue and slight clear mucous discharge without other significant finding. The fiberoptic bronchoscope was removed, maintaining views of the airway the entire time. Procedure ended without event. Patient tolerated well. No immediate complications. Findings: Trachea Normal in appearance without structural abnormality. ET Tube appropriately placed above the feliciano. Main Feliciano No injury, trauma, or mucosal changes at the bifurcation. LEFT Mainstem Bronchus: BARBARA Normal in appearance without mucosal injury or purulent discharge. LLL Normal in appearance without mucosal injury or purulent discharge. RIGHT Mainstem Bronchus: RUL: Slight hyperemia of the mucosal tissue with minimal clear discharge appreciated. RIGHT Bronchus Intermedius: RML Hyperemia of the mucosal tissues with clear discharge noted. No significant purulent discharge or mucosal injury noted. RLL Moderate Hyperemia of the mucosal tissues with mild amounts of clear discharge noted. No purulent discharge appreciate. No significant injury noted. Specimens: BAL 20 mL NSS x 2, RLL Lobe. Increased hyperemia s/p BAL w/o bleeding. Complications: NONE Impression: Moderate hyperemia of the RLL/RML with slight clear discharge present. No significant mucosal injury noted. No bleeding. Plan: Sent BAL for Culture & Sensitivities, Gram Stain, AFB Dr. Gooden present at bedside throughout entire procedure. Coding CPT Codes Pulmonary/Thoracic - Pulmonary and Thoracic: Dx bronchoscopy/BAL ([id number])
[2018-10-28] MEDS ORDERED: PROPOFOL 1,000 MG/100 ML VIAL IV SCH (22:43)
[2018-10-29] MEDS: INSULIN ASPART 100 UNITS/ML 3 ML PEN SC SCH ×4 (00:09→13:18)
[2018-10-29 00:50] LABS: Influenza A virus by PCR Neg for Influ A (Neg); Influenza B virus by PCR Neg for Influ B (Neg)
[2018-10-29] MEDS: methylPREDNISolone 40 MG in SYRINGE 0 ML IV SCH ×4 (02:50→17:40)
[2018-10-29] MEDS: NORMOSOL-R 1,000 ML IV SCH (06:01)
[2018-10-29 06:34] LABS: Estimated Average Glucose 126 mg/dl
--- NOTE | 2018-10-29 06:48 | Critical Care Progress Note ---
Date of Service October 29, 2018 Assessment & Plan (1) Admitted to intensive care unit: Saeed Corral is a 58 y/o male with history of asthma and current smoker, who presented for dyspnea requiring intubation with mechanical ventilation. Stable for transfer out of ICU today. Neuro Reviewed PDMP, gets Dilaudid for pain pump; daily Morphine equivalent is 15.67. discontinued pain meds since has pain pump Cardiac/Vascular Review of [employer] EMR - most recent records from 2014, but listed is a diagnosis of HTN Pulm CTA chest to rule out PE in ED prior to transfer to ICU was negative for PE. Extubated from mechanical ventilator Solumedrol 40mg q6h changed to q8h Will treat as COPD exacerbation GI Ranitidine 50mg IV q8h Regular Diet okay Renal/Lytes Creatinine WNL No significant electrolyte abnormalities [place] in place Endo Hx DM2 from chart review hyperglycemic management per unit protocol Heme Leukocytosis on presentation most likely demargination from stress CBC otherwise unremarkable ID Ceftriaxone 1gm q24h and Levaquin 750mg q24h continued for synergistic effect to cover for potential strep pneumonia Lines 20g right AC 18g left AC DVT ppx: lovenox 40mg qday Resuscitation status - Full Code Supervising Physician Co-Signing Physician Notes Dr. Perkins was resident physician during care of patient. I separately evaluated patient for vieyra portions of the history and the exam. I was present during the critical portion of medical decision making, and I discussed the case with the resident. I generally agree with the findings and plan. Patient extubated this morning saturating well on 4 L nasal cannula will decrease oxygen requirement, wears 2 L of oxygen at night. Reports that he discontinued smoking 3 days ago Continue Rocephin and Levaquin at the present time, would consider de-escalation to Levaquin a single agent. Patient would be stable for downgrade out of ICU today. Subjective Mr. An was extubated this morning without complications. He notes he has been compliant with home inhalers. He states he stopped smoking cold turkey about 3 days ago because he was frustrated with having shortness of breath. He notes his shortness of breath worsened yesterday. He denies any current pain, nausea. Review of Systems Review of Systems: All systems reviewed & are unremarkable except as noted in HPI & below Physical Exam Constitutional: cooperative and comfortable Eyes: + anicteric sclerae and EOM intact bilaterally Neck: normal visual inspection and trachea midline Respiratory: Auscultation: + diminished lung sounds, + wheezes (diffuse expiratory) and + abnormal I/E ratio (prolonged expiratory phase) Cardiovascular: Rate/Rhythm: regular rate and regular rhythm Extremities: no pedal edema Gastrointestinal (Abdomen): Percussion/Palpation: abdomen soft; abdomen nontender Musculoskeletal: Head/Neck/Chest: normocephalic and head atraumatic Skin: no rashes, warm and dry Neurologic: moves all extremities and awake Psychiatric: Orientation: alert, oriented to person, oriented to place, oriented to time (wasn't aware of time of day, was just extubated, easily reoriented to time) and cooperative Results & Data Vital Signs (Past 12 Hours) Vital Signs Temp Pulse Resp BP Pulse Ox 10/29/18 06:00 66 95/58 L 91 10/29/18 05:30 76 98/65 L 94 10/29/18 05:00 66 106/67 98 10/29/18 04:30 64 95/63 L 98 10/29/18 04:00 37.1 C 65 101/61 99 10/29/18 03:30 67 99/61 L 98 10/29/18 03:00 69 93/65 L 97 10/29/18 02:30 74 108/72 99 10/29/18 02:22 69 22 97 10/29/18 02:00 66 92/59 L 96 10/29/18 01:30 66 89/58 L 96 10/29/18 01:00 71 86/63 L 95 10/29/18 00:30 76 91/59 L 94 10/29/18 00:00 77 80/60 L 92 10/28/18 23:30 84 91/65 L 91 10/28/18 23:00 97 H 92/70 L 98 10/28/18 22:40 95 H 27 H 99 10/28/18 22:31 95 H 139/89 96 10/28/18 22:00 97 H 107/77 96 10/28/18 21:30 91 H 110/70 95 10/28/18 21:19 106 H 10/28/18 21:00 84 96/66 L 94 10/28/18 20:30 37.2 C 90 99/65 L 93 10/28/18 20:00 86 85/59 L 94 07/31/19 19:30 85 119/70 97 10/28/18 19:26 90 27 H 96 10/28/18 19:02 85 93 10/28/18 19:00 81 88/59 L 94 10/28/18 18:59 86 94/64 L 93 Laboratory Results Laboratory Results - last 24 hr 10/28/18 10/28/18 10/28/18 10:51 10:51 10:51 WBC 20.60 H RBC 5.16 Hgb 15.5 Hct 46.0 MCV 89.1 MCH 30.0 MCHC 33.7 RDW Std Deviation 45.9 RDW Coeff of Nilo 14.0 Plt Count 226 MPV 9.4 Immature Gran % (Auto) 0.4 Neut % (Auto) 75.5 Lymph % (Auto) 12.8 Schleicher % (Auto) 10.9 Eos % (Auto) 0.3 Baso % (Auto) 0.1 Immature Gran # (Auto) 0.08 H Neut # (Auto) 15.55 H Lymph # (Auto) 2.63 Schleicher # (Auto) 2.25 H Eos # (Auto) 0.06 Baso # (Auto) 0.03 PT 11.0 INR 1.1 APTT 30.6 PTT Ratio 1.1 POC VBG pH POC VBG pCO2 POC VBG pO2 POC VBG HCO3 POC VBG Total CO2 POC Venous O2 Sat POC VBG Base Excess Sodium 136 Potassium 3.8 Chloride 99 Carbon Dioxide 30 Anion Gap 6.0 BUN 6 L Creatinine 0.71 Est Cr Clr Drug Dosing 107.3 Est GFR ( Amer) 120.7 Est GFR (Non-Af Amer) 104.2 BUN/Creatinine Ratio 8.1 L Glucose 154 H POC Glucose Estimat Average Glucose Hemoglobin A1c Lactate Calcium 9.1 Phosphorus Magnesium Total Bilirubin AST ALT Alkaline Phosphatase Troponin I < 0.015 Total Protein Albumin Globulin Albumin/Globulin Ratio Nasal Screen MRSA (PCR) Influenza Type A (PCR) Influenza Type B (PCR) 10/28/18 10/28/18 10/28/18 10:51 14:21 14:43 WBC RBC Hgb Hct MCV MCH MCHC RDW Std Deviation RDW Coeff of Nilo Plt Count MPV Immature Gran % (Auto) Neut % (Auto) Lymph % (Auto) Schleicher % (Auto) Eos % (Auto) Baso % (Auto) Immature Gran # (Auto) Neut # (Auto) Lymph # (Auto) Schleicher # (Auto) Eos # (Auto) Baso # (Auto) PT INR APTT PTT Ratio POC VBG pH 7.25 L POC VBG pCO2 67 H POC VBG pO2 32 POC VBG HCO3 29 H POC VBG Total CO2 31 POC Venous O2 Sat Pending POC VBG Base Excess 2.0 Sodium Potassium Chloride Carbon Dioxide Anion Gap BUN Creatinine Est Cr Clr Drug Dosing Est GFR ( Amer) Est GFR (Non-Af Amer) BUN/Creatinine Ratio Glucose POC Glucose 197 H Estimat Average Glucose Hemoglobin A1c Lactate 2.0 Calcium Phosphorus Magnesium Total Bilirubin AST ALT Alkaline Phosphatase Troponin I Total Protein Albumin Globulin Albumin/Globulin Ratio Nasal Screen MRSA (PCR) Influenza Type A (PCR) Influenza Type B (PCR) 10/28/18 10/28/18 10/28/18 16:37 19:59 23:20 WBC RBC Hgb Hct MCV MCH MCHC RDW Std Deviation RDW Coeff of Nilo Plt Count MPV Immature Gran % (Auto) Neut % (Auto) Lymph % (Auto) Schleicher % (Auto) Eos % (Auto) Baso % (Auto) Immature Gran # (Auto) Neut # (Auto) Lymph # (Auto) Schleicher # (Auto) Eos # (Auto) Baso # (Auto) PT INR APTT PTT Ratio POC VBG pH POC VBG pCO2 POC VBG pO2 POC VBG HCO3 POC VBG Total CO2 POC Venous O2 Sat POC VBG Base Excess Sodium Potassium Chloride Carbon Dioxide Anion Gap BUN Creatinine Est Cr Clr Drug Dosing Est GFR ( Amer) Est GFR (Non-Af Amer) BUN/Creatinine Ratio Glucose POC Glucose 176 H 153 H Estimat Average Glucose Hemoglobin A1c Lactate Calcium Phosphorus Magnesium Total Bilirubin AST ALT Alkaline Phosphatase Troponin I Total Protein Albumin Globulin Albumin/Globulin Ratio Nasal Screen MRSA (PCR) Influenza Type A (PCR) Neg for Influ A Influenza Type B (PCR) Neg for Influ B 10/28/18 10/29/18 10/29/18 Unknown 00:08 04:53 WBC RBC Hgb Hct MCV MCH MCHC RDW Std Deviation RDW Coeff of Nilo Plt Count MPV Immature Gran % (Auto) Neut % (Auto) Lymph % (Auto) Schleicher % (Auto) Eos % (Auto) Baso % (Auto) Immature Gran # (Auto) Neut # (Auto) Lymph # (Auto) Schleicher # (Auto) Eos # (Auto) Baso # (Auto) PT INR APTT PTT Ratio POC VBG pH POC VBG pCO2 POC VBG pO2 POC VBG HCO3 POC VBG Total CO2 POC Venous O2 Sat POC VBG Base Excess Sodium Potassium Chloride Carbon Dioxide Anion Gap BUN Creatinine Est Cr Clr Drug Dosing Est GFR ( Amer) Est GFR (Non-Af Amer) BUN/Creatinine Ratio Glucose POC Glucose 126 H Estimat Average Glucose 126 Hemoglobin A1c 6.0 H Lactate Calcium Phosphorus Magnesium Total Bilirubin AST ALT Alkaline Phosphatase Troponin I Total Protein Albumin Globulin Albumin/Globulin Ratio Nasal Screen MRSA (PCR) Negative Influenza Type A (PCR) Influenza Type B (PCR) 10/29/18 10/29/18 10/29/18 04:53 04:56 07:05 WBC 18.75 H RBC 4.65 L Hgb 13.7 L Hct 40.8 L MCV 87.7 MCH 29.5 MCHC 33.6 RDW Std Deviation 44.2 RDW Coeff of Nilo 13.8 Plt Count 206 MPV 9.4 Immature Gran % (Auto) 0.2 Neut % (Auto) 89.1 Lymph % (Auto) 5.7 Schleicher % (Auto) 4.9 Eos % (Auto) 0.0 Baso % (Auto) 0.1 Immature Gran # (Auto) 0.04 H Neut # (Auto) 16.72 H Lymph # (Auto) 1.06 L Schleicher # (Auto) 0.92 H Eos # (Auto) 0.00 Baso # (Auto) 0.01 PT INR APTT PTT Ratio POC VBG pH POC VBG pCO2 POC VBG pO2 POC VBG HCO3 POC VBG Total CO2 POC Venous O2 Sat POC VBG Base Excess Sodium Potassium Chloride Carbon Dioxide Anion Gap BUN Creatinine Est Cr Clr Drug Dosing Est GFR ( Amer) Est GFR (Non-Af Amer) BUN/Creatinine Ratio Glucose POC Glucose 128 H Estimat Average Glucose Hemoglobin A1c Lactate Calcium Phosphorus 4.3 Magnesium Total Bilirubin AST ALT Alkaline Phosphatase Troponin I Total Protein Albumin Globulin Albumin/Globulin Ratio Nasal Screen MRSA (PCR) Influenza Type A (PCR) Influenza Type B (PCR) 10/29/18 07:05 WBC RBC Hgb Hct MCV MCH MCHC RDW Std Deviation RDW Coeff of Nilo Plt Count MPV Immature Gran % (Auto) Neut % (Auto) Lymph % (Auto) Schleicher % (Auto) Eos % (Auto) Baso % (Auto) Immature Gran # (Auto) Neut # (Auto) Lymph # (Auto) Schleicher # (Auto) Eos # (Auto) Baso # (Auto) PT INR APTT PTT Ratio POC VBG pH POC VBG pCO2 POC VBG pO2 POC VBG HCO3 POC VBG Total CO2 POC Venous O2 Sat POC VBG Base Excess Sodium Pending Potassium Pending Chloride Pending Carbon Dioxide Pending Anion Gap Pending BUN Pending Creatinine Pending Est Cr Clr Drug Dosing Pending Est GFR ( Amer) Pending Est GFR (Non-Af Amer) Pending BUN/Creatinine Ratio Pending Glucose Pending POC Glucose Estimat Average Glucose Hemoglobin A1c Lactate Calcium Pending Phosphorus Magnesium Pending Total Bilirubin Pending AST Pending ALT Pending Alkaline Phosphatase Pending Troponin I Total Protein Pending Albumin Pending Globulin Pending Albumin/Globulin Ratio Pending Nasal Screen MRSA (PCR) Influenza Type A (PCR) Influenza Type B (PCR) Medications Administered Enoxaparin Sodium (Lovenox) 40 mg SQ QAM [facility] Stop: 11/27/18 13:59 Last Admin: 10/28/18 16:42 Dose: 40 mg Documented by: [id number] Ranitidine HCl 50 mg/ Dextrose 102 mls @ 200 mls/hr IV Q8H [facility] Stop: 11/27/18 13:59 Last Infusion: 10/29/18 06:47 Dose: 0 mls/hr Documented by: [id number] Admin: 10/29/18 06:03 Dose: 200 mls/hr Documented by: [id number] Infusion: 10/28/18 23:57 Dose: 0 mls/hr Documented by: [id number] Admin: 10/28/18 23:22 Dose: 200 mls/hr Documented by: [id number] Infusion: 10/28/18 17:47 Dose: 0 mls/hr Documented by: [id number] Admin: 10/28/18 16:41 Dose: 200 mls/hr Documented by: [id number] Levofloxacin/Dextrose (Levaquin/D5w) 750 mg in 150 mls @ 100 mls/hr IV Q24H [facility] Stop: 11/04/18 19:59 Last Infusion: 10/28/18 21:48 Dose: 0 mls/hr Documented by: [id number] Admin: 10/28/18 20:15 Dose: 100 mls/hr Documented by: [id number] Methylprednisolone 40 mg/ (Syringe) 0.64 mls @ 1.5 mls/min IV Q6H [facility] Stop: 11/27/18 19:59 Last Admin: 10/29/18 02:50 Dose: 1.5 mls/min Documented by: [id number] Admin: 10/28/18 19:57 Dose: 1.5 mls/min Documented by: [id number] Ceftriaxone Sodium 1,000 mg/ (Dextrose) 60 mls @ 100 mls/hr IV Q24H [facility]; Protocol Stop: 11/04/18 19:59 Last Infusion: 10/28/18 20:28 Dose: 0 mls/hr Documented by: [id number] Admin: 10/28/18 19:57 Dose: 100 mls/hr Documented by: [id number] Parenteral Electrolytes (Normosol-R) 1,000 mls @ 100 mls/hr IV .Q10H [facility] Stop: 11/27/18 19:29 Last Admin: 10/29/18 06:01 Dose: 100 mls/hr Documented by: [id number] Infusion: 10/29/18 06:01 Dose: 100 mls/hr Documented by: [id number] Admin: 10/28/18 20:12 Dose: 100 mls/hr Documented by: [id number] Propofol (Diprivan) 1,000 mg in 100 mls @ 4.14 mls/hr IV .Q24H [facility]; Protocol Stop: 10/31/18 22:42 Last Titration: 10/29/18 07:07 Dose: 10 mcg/kg/min, 4.1 mls/hr Documented by: [id number] Cosigned by: [id number] Titration: 10/29/18 06:30 Dose: 10 mcg/kg/min, 4.1 mls/hr Documented by: [id number] Admin: 10/29/18 05:11 Dose: 25 mcg/kg/min, 10.4 mls/hr Documented by: [id number] Cosigned by: [id number] Insulin Aspart (Novolog Flexpen) 0 units SC Q4 [facility] Stop: 11/27/18 15:59 Last Admin: 10/29/18 04:58 Dose: Not Given Documented by: [id number] Cosigned by: [id number] Admin: 10/29/18 00:09 Dose: Not Given Documented by: [id number] Cosigned by: [id number] Admin: 10/28/18 20:13 Dose: Not Given Documented by: [id number] Cosigned by: [id number] Admin: 10/28/18 16:47 Dose: 1 units Documented by: [id number] Cosigned by: [id number] Insulin Glargine (Lantus Solostar Pen) 0 units SC Q12H [facility]; Protocol Stop: 11/27/18 19:59 Last Admin: 10/28/18 20:05 Dose: 6 units Documented by: [id number] Cosigned by: [id number] Ioversol (Optiray 320 125ml) 120 ml IV ONCE PRN PRN Reason: Interaction Checking Stop: 11/01/18 12:24 Last Admin: 10/28/18 12:26 Dose: 120 ml Documented by: [id number] Miscellaneous (Remove Nicoderm Patch) 1 ea N/A HS [facility] Stop: 11/27/18 20:59 Last Admin: 10/28/18 21:53 Dose: Not Given Documented by: [id number] Catrachito (Pending Order) 1 ea N/A Q4 [facility] Stop: 11/27/18 15:59 Last Admin: 10/29/18 04:59 Dose: Not Given Documented by: [id number] Admin: 10/29/18 00:13 Dose: Not Given Documented by: [id number] Admin: 10/29/18 00:13 Dose: Not Given Documented by: [id number] Admin: 10/28/18 17:47 Dose: Not Given Documented by: [id number] Nicotine (Nicoderm Cq) 21 mg TD QAM [facility] Stop: 11/27/18 13:59 Last Admin: 10/28/18 16:42 Dose: Not Given Documented by: [id number] PG Care Time/CCT Total # of Minutes Spent Total Time Spent with Patient: Total time spent is greater than 50% in coordination of care (as documented) at patient's floor/unit and/or counseling patient: Resident Activity Tracking Resident Involvement: Resident Care Provided Care Provided: Adult Hospital Medicine (ICU)
[2018-10-29 07:12] LABS: Basophils # (auto) 0.01 K/uL (0-0.2); Basophils % (auto) 0.1 %; Hematocrit (blood only) 40.8 % (42-52); Hemoglobin 13.7 g/dL (14.0-18.0); Immature Granulocytes # (auto) 0.04 K/uL (0.00-0.02); Immature Granulocytes % (auto) 0.2 %; Lymphocytes # (auto) 1.06 K/uL (1.2-3.4); Lymphocytes % (auto) 5.7 %; Mean Corpuscular Hgb Conc 33.6 g/dL (32-36); Mean Corpuscular Volume 87.7 fL (80-100); Mean Platelet Volume 9.4 fL (7.4-10.4); Monocytes # (auto) 0.92 K/uL (0.11-0.59); Monocytes % (auto) 4.9 %; Neutrophils # (auto) 16.72 K/uL (1.4-6.5); Neutrophils % (auto) 89.1 %; Platelet Count 206 K/uL (130-400); RDW Coefficient of Variation 13.8 % (11.5-14.5); RDW Standard Deviation 44.2 fL (36.4-46.3); Red Blood Count 4.65 M/uL (4.7-6.1); White Blood Count 18.75 K/uL (4.8-10.8)
--- NOTE | 2018-10-29 07:31 | XRay Report ---
XR chest 1V portable CLINICAL HISTORY: Respiratory failure COMPARISON STUDY: 10/28/2018 FINDINGS: There is been interval removal of endotracheal tube. There are persistent upper lung predom inant reticulonodular opacities. There is no failure. There are no significant pleural effusions.[ IMPRESSION: 1. Stable upper lung zone predominant reticulonodular thickening 2. Interval removal of the endotracheal tube Electronically signed by: Zi Hansen M.D. 10/29/2018 7:30 AM
[2018-10-29 07:53] LABS: Albumin Globulin Ratio 0.7 (0.9-2); Albumin Level 2.8 gm/dl (3.4-5.0); BUN Creatinine Ratio 19.2 (10-20); Bilirubin,Total 0.3 mg/dl (0.2-1); Calcium 8.8 mg/dl (8.5-10.1); Creatinine Clr Calc Pharmacy 133.1 ml/min; Est GFR (African American) 129.4; Est GFR (Non-African American) 111.6; Globulin 3.8 gm/dl (2.5-4.0); Magnesium 2.6 mg/dl (1.8-2.4); Potassium 4.5 mmol/L (3.5-5.1); Total Protein 6.6 gm/dl (6.4-8.2)
--- NOTE | 2018-10-29 09:34 | Pharmacy Report ---
Pharmacy Glycemic Short Note 2 - Date of Service October 29, 2018 - Glycemic Short BSG Results (Last 24 hours): 10/28/18 10/28/18 10/28/18 10:51 14:43 16:37 Glucose 154 H POC Glucose 197 H 176 H 10/28/18 10/29/18 10/29/18 19:59 00:08 04:56 Glucose POC Glucose 153 H 126 H 128 H 10/29/18 07:05 Glucose 145 H POC Glucose OUTPATIENT ANTIDIABETIC REGIMEN: * n/a; denied h/o DM * A1c = 6.0% 10/29/18 (pre-diabetic range) ASSESSMENT: 10/29 * Glycemic control adequate over the last 24 hrs w/ current basal/bolus orders * Fasting BSG 145 this AM w/ 16 units Lantus on board - will adjust Lantus scale to allow for similar daily dose * Current Novolog doses are reasonable starting points and has only been utilized once since starting - will follow post-prandial BSG pattern and adjust PRN * New events in last 24 hrs: extubated, diet may be ordered today 10/28 * Patient being admitted to ICU due to respiratory failure secondary to asthma exac / COPD exac, respiratory acidosis requiring intubation in the ED * Will continue [place] Supervisor's orders for 1st dose of Lantus and Novolog - reasonable starting points * Will adjust Novolog dosing frequency and BSGs to Q 4 hrs, will also continue Lantus BID but per sliding scale given uncertain h/o DM and current stressors * Will start insulin drip if BSG > 200 x 1 PLAN FOR INPATIENT GLYCEMIC CONTROL: * Basal insulin * SQ BID per the following scale: * 0 units if less than 140 * 8 units if 140-200 * 12 units if > 200 (and begin IV insulin drip) * Bolus insulin (no change) * NovoLog per scale Q 4 hrs * Goal Range: Low 110 mg/dL - High 160 mg/dL * Correction Factor: 20 mg/dL/unit * Nutritional / Prandial insulin per carb ratio of 1 unit per 30 grams CHO consumed * If BSG > 200, begin IV insulin drip per Moderate stress protocol, goal range 110-180 PLAN FOR DISCHARGE: * to be determined
[2018-10-29 11:12] LABS: iSTAT Arterial Blood Gas HCO3 28 meg/L (19-24); iSTAT Arterial Blood Gas pCO2 70 mmHg (35-46); iSTAT Arterial Blood Gas pH 7.21 (7.35-7.45); iSTAT Carbon Dioxide 30 mEq/l (24-31)
[2018-10-29 11:13] LABS: iSTAT Sample Type Arterial
[2018-10-29] MEDS: INSULIN GLARGINE SOLOSTAR 100 UNITS/ML 3 ML PEN SC SCH (11:41)
[2018-10-29] MEDS: NICOTINE 21 MG/24 HR TDSY TD SCH (12:08)
[2018-10-29] MEDS: ENOXAPARIN INJ 40 MG/0.4 ML SYR SQ SCH (12:09)
--- NOTE | 2018-10-29 12:50 | Hospitalist Progress Note ---
Date of Service October 29, 2018 Assessment & Plan (1) Acute respiratory failure: 2/2 COPD exacerbation possibly trigger by an environmental allergen (throat was tight and mowing grass when started to feel poorly) vs infectious trigger. Extubated today and transferred to PCU. Doing much better today. Has no conversational dyspnea. We had a long discussion about quitting smoking. He continues to use the oxygen today at rest, and we will look for that to improve to his baseline of nighttime use only. Cont scheduled nebulizers, solumedrol and antibiotics. He did not report classic pneumonia symptoms prior to falling ill and becoming intubated, however, he reports being admitted for pneumonia 4 times in the past 1-2 years at [facility] (records have been requested) and CT chest did reveal a linear area of density in the RUL which was nonspecific. Would continue current antibiotics until he improves further clinically. (2) COPD exacerbation: plan as above. (3) Tobacco abuse: strongly encouraged smoking cessation. discussed quit options including tobacco cessation program at [facility] and options through [facility]. Contemplative phase. (4) Chronic pain: pain pump RLQ PDMP reviewed gets Dilaudid for pain pump; daily Morphine equivalent is 15.67 (5) DVT prophylaxis: Lovenox Full Dispo-likely hospitalized through the weekend while he continues to recover. Expected discharge to home when medically stable. Amber Coe DO [facility] Hospitalist Subjective 58 yo M who smokes presented with acute respiratory failure. 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 He thought this was related to being at the end of his inhaler, as that has happened in the past but didn't improve. The following morning, EMS found him in repiratory distress and he was brought to the ER and intubated. He has been on steroids and antibiotics and was extubated this morning. He reports a sore throat but feels better overall. His is at the bedside and assists with the story. He denies any known allergy and had no lip or face swelling. He reports a h/o pneumonia with a few hospitalizations over the past 1-2 years, but denies any coughing, fevers, chills or other classic pneumonia symptoms prior to falling ill. Review of Systems Review of Systems: All systems reviewed & are unremarkable except as noted in HPI & below Physical Exam Physical Exam: CONSTITUTIONAL: WNWD, vitals as above, generally well- appearing, ambulatory EYES: normal conjunctivae, no scleral icterus ENT: external ear and nose normal, nasal canula in place NECK: trachea midline RESPIRATORY: poor air movement, some wheezing heard at the left lung base. Normal effort, no conversational dyspnea. CARDIOVASCULAR: regular rate and rhythm, S1 and 2 heard without murmurs, gallops or rubs, no JVD, no peripheral edema GASTROINTESTINAL: normal bowel sounds, soft, nontender, nondistended MUSCULOSKELETAL: strength 5/5 throughout, head is normocephalic and atraumatic, ambulatory SKIN: warm and dry NEUROLOGIC: No facial palsy, no dysarthria. CN 2-12 grossly intact, no sensory deficit, normal cognition, normal speech, no gross focal deficits. PSYCHIATRIC: alert cooperative and oriented to person, place and time. Results & Data Vital Signs (Past 12 Hours) Vital Signs Temp Pulse Resp BP Pulse Ox 10/29/18 12:00 36.7 C 80 19 122/70 93 10/29/18 11:00 78 23 108/70 96 10/29/18 10:30 60 12 98/58 L 98 10/29/18 10:00 60 14 102/51 L 97 10/29/18 09:00 67 17 103/53 L 92 10/29/18 08:00 36.8 C 81 102/60 94 10/29/18 07:00 78 120/75 100 10/29/18 06:00 66 95/58 L 91 10/29/18 05:30 76 98/65 L 94 10/29/18 05:00 66 106/67 98 10/29/18 04:30 64 95/63 L 98 10/29/18 04:00 37.1 C 65 101/61 99 10/29/18 03:30 67 99/61 L 98 10/29/18 03:00 69 93/65 L 97 10/29/18 02:30 74 108/72 99 10/29/18 02:22 69 22 97 10/29/18 02:00 66 92/59 L 96 10/29/18 01:30 66 89/58 L 96 10/29/18 01:00 71 86/63 L 95 Laboratory Results Short CBC 10/29/18 Range/Units 07:05 WBC 18.75 H (4.8-10.8) K/uL Hgb 13.7 L (14.0-18.0) g/dL Hct 40.8 L (42-52) % Plt Count 206 (130-400) K/uL BMP 10/29/18 07:05 Sodium 133 L Potassium 4.5 D Chloride 98 Carbon Dioxide 30 BUN 11 D Creatinine 0.60 Glucose 145 H Calcium 8.8 Liver Function 10/29/18 Range/Units 07:05 Total Bilirubin 0.3 (0.2-1) mg/dl AST 12 L (15-37) U/L ALT 17 (12-78) U/L Alkaline Phosphatase 119 H (45-117) U/L Albumin 2.8 L (3.4-5.0) gm/dl Diagnostic Findings XR chest 1V portable CLINICAL HISTORY: Respiratory failure COMPARISON STUDY: 10/28/2018 FINDINGS: There is been interval removal of endotracheal tube. There are pers istent upper lung predominant reticulonodular opacities. There is no failure. There are no significant pleural effusions.[ IMPRESSION: 1. Stable upper lung zone predominant reticulonodular thickening 2. Interval removal of the endotracheal tube Medications Administered Current Inpatient Medications Dextrose (Dextrose 50%) 25 - 50 ml IV UD PRN; Protocol PRN Reason: Hypoglycemia Protocol Stop: 11/27/18 11:43 Enoxaparin Sodium (Lovenox) 40 mg SQ QAM [facility] Stop: 11/27/18 13:59 Last Admin: 10/29/18 12:09 Dose: 40 mg Documented by: Glucagon (Glucagen) 1 mg SQ UD PRN; Protocol PRN Reason: Hypoglycemia Protocol Stop: 11/27/18 11:43 Glucose (Dex4 Glucose) 4 - 8 tabs PO UD PRN; Protocol PRN Reason: Hypoglycemia Protocol Stop: 11/27/18 11:43 Glucose (Glucose 40%) 15 - 30 gm PO UD PRN; Protocol PRN Reason: Hypoglycemia Protocol Stop: 11/27/18 11:43 Levofloxacin/Dextrose (Levaquin/D5w) 750 mg in 150 mls @ 100 mls/hr IV Q24H [facility] Stop: 11/04/18 19:59 Last Infusion: 10/28/18 21:48 Dose: Infused Documented by: Ceftriaxone Sodium 1,000 mg/ (Dextrose) 60 mls @ 100 mls/hr IV Q24H [facility]; Protocol Stop: 11/04/18 19:59 Last Infusion: 10/28/18 20:28 Dose: Infused Documented by: Methylprednisolone 40 mg/ (Syringe) 0.64 mls @ 1.5 mls/min IV Q8H [facility] Stop: 11/28/18 09:59 Last Admin: 10/29/18 12:08 Dose: 1.5 mls/min Documented by: Insulin Aspart (Novolog Flexpen) 0 units SC Q4 [facility] Stop: 11/27/18 15:59 Last Admin: 10/29/18 11:44 Dose: Not Given Documented by: Insulin Glargine (Lantus Solostar Pen) 0 units SC Q12H [facility]; Protocol Stop: 11/27/18 19:59 Last Admin: 10/29/18 11:41 Dose: Not Given Documented by: Ioversol (Optiray 320 125ml) 120 ml IV ONCE PRN PRN Reason: Interaction Checking Stop: 11/01/18 12:24 Last Admin: 10/28/18 12:26 Dose: 120 ml Documented by: Levalbuterol HCl (Xopenex 1.25mg/3ml Neb) 1.25 mg INH Q4H PRN PRN Reason: Dyspnea Stop: 11/27/18 11:43 Miscellaneous (Carbohydrates For Hypoglycemia) 15 - 30 gm PO UD PRN PRN Reason: Hypoglycemia Treatment Stop: 11/27/18 11:43 Miscellaneous (Remove Nicoderm Patch) 1 ea N/A HS [facility] Stop: 11/27/18 20:59 Last Admin: 10/28/18 21:53 Dose: Not Given Documented by: Miscellaneous Information (Consult Glycemic Management Pharmacy) 1 ea N/A UD PRN; Protocol PRN Reason: Consult Stop: 11/27/18 11:51 Nicotine (Nicoderm Cq) 21 mg TD QAM [facility] Stop: 11/27/18 13:59 Last Admin: 10/29/18 12:08 Dose: 21 mg Documented by:
[2018-10-29] MEDS: cefTRIAXone SODIUM 1,000 MG in DEXTROSE 5% 50 ML IV SCH (20:13)
[2018-10-29] MEDS: LEVOFLOXACIN/D5W 750 MG/150 ML BAG IV SCH (20:14)
[2018-10-30] MEDS: methylPREDNISolone 40 MG in SYRINGE 0 ML IV SCH ×3 (03:37→17:14)
[2018-10-30 06:23] LABS: Basophils # (auto) 0.01 K/uL (0-0.2); Hematocrit (blood only) 40.4 % (42-52); Hemoglobin 13.4 g/dL (14.0-18.0); Immature Granulocytes # (auto) 0.07 K/uL (0.00-0.02); Immature Granulocytes % (auto) 0.3 %; Lymphocytes % (auto) 5.8 %; Mean Corpuscular Hgb Conc 33.2 g/dL (32-36); Mean Corpuscular Volume 88.2 fL (80-100); Mean Platelet Volume 9.7 fL (7.4-10.4); Monocytes # (auto) 1.22 K/uL (0.11-0.59); Monocytes % (auto) 5.9 %; Neutrophils # (auto) 18.31 K/uL (1.4-6.5); Platelet Count 219 K/uL (130-400); RDW Coefficient of Variation 13.4 % (11.5-14.5); RDW Standard Deviation 43.5 fL (36.4-46.3); Red Blood Count 4.58 M/uL (4.7-6.1); White Blood Count 20.81 K/uL (4.8-10.8)
[2018-10-30 07:03] LABS: Alanine Aminotransferase 16 U/L (12-78); Albumin Level 2.7 gm/dl (3.4-5.0); Aspartate Aminotransferase 10 U/L (15-37); BUN Creatinine Ratio 29.7 (10-20); Bilirubin Direct < 0.1 mg/dl (0-0.2); Blood Urea Nitrogen 18 mg/dl (7-18); Carbon Dioxide 31 mmol/L (21-32); Chloride 103 mmol/L (98-107); Est GFR (African American) 128.5; Est GFR (Non-African American) 110.9; Glucose 134 mg/dl (70-99); Magnesium 2.3 mg/dl (1.8-2.4); Potassium 4.4 mmol/L (3.5-5.1); Sodium 138 mmol/L (136-145)
[2018-10-30 07:06] LABS: Alkaline Phosphatase 115 U/L (45-117); Bilirubin,Total 0.2 mg/dl (0.2-1); Total Protein 6.3 gm/dl (6.4-8.2)
[2018-10-30] MEDS: ALBUT/IPRATROP 3MG/0.5MG NEB 3 ML VIAL NEB SCH ×4 (07:08→18:53)
--- NOTE | 2018-10-30 07:17 | XRay Report ---
XR chest 1V portable CLINICAL HISTORY: Respiratory failure COMPARISON STUDY: 10/29/2018 FINDINGS: The cardiac and mediastinal contours remain stable. There are stable reticulonodular opacit ies with an upper lung zone predominance. There is a linear area of subsegmental atelectasis towards the left lung base. IMPRESSION: 1. Stable upper lung zone predominant reticulonodular thickening Electronically signed by: Zi Hansen M.D. 10/30/2018 7:16 AM
[2018-10-30] MEDS: INSULIN ASPART 100 UNITS/ML 3 ML PEN SC SCH ×4 (08:13→21:39)
[2018-10-30] MEDS: INSULIN GLARGINE SOLOSTAR 100 UNITS/ML 3 ML PEN SC SCH ×2 (08:15→21:38)
[2018-10-30] MEDS: ENOXAPARIN INJ 40 MG/0.4 ML SYR SQ SCH (09:01)
[2018-10-30] MEDS: NICOTINE 21 MG/24 HR TDSY TD SCH (09:01)
[2018-10-30 09:20] LABS: iSTAT Allen Test Pass; iSTAT Art Bld Gas pCO2 Correct 54 mmHg (35-46); iSTAT Art Bld Gas pH Corrected 7.352 (7.35-7.45); iSTAT Arterial Blood Gas HCO3 30 meg/L (19-24); iSTAT Arterial Blood Gas pCO2 53 mmHg (35-46); iSTAT Arterial Blood Gas pH 7.36 (7.35-7.45); iSTAT Carbon Dioxide 31 mEq/l (24-31); iSTAT Site L Radial
--- NOTE | 2018-10-30 14:10 | Pharmacy Report ---
Glycemic Control Progress Note - Date of Service October 30, 2018 - Scope Glycemic Pharmacist consulted for glycemic control to write orders per [facility] inpatient glycemic control protocol. - Objective Accuchecks BSG(last 24 hours):: 10/29/18 10/29/18 10/30/18 16:20 20:56 05:57 Glucose 134 H POC Glucose 144 H 208 H 10/30/18 10/30/18 07:32 11:28 Glucose POC Glucose 161 H 184 H HbA1c:: Hemoglobin A1c 6.0 % (4.5-5.6) H 10/29/18 04:53 - Recent Pertinent Medications The patient is currently receiving: * NO INSULIN ORDERED - discontinued on transfer - Outpatient Anti-Diabetic Meds none - Assessment & Plan ASSESSMENT: * See progress note from 10/28/18 for more background info, in short: * Pt receiving SQ basal bolus insulin regimen for hyperglycemia secondary to baseline DM (outpatient regimen on hold) and steroids (currently on Solu- Medrol 40 mg IV q8 hours) * Patient is currently receiving an average of 0 units of insulin per day * 0 units of basal insulin * 0 units of prandial/correctional insulin * BSGs ranging 119 - 208 mg/dl over the past 24hrs * Changes needed to insulin regimen: * AM Fasting BSG = 161 mg/dl. This is slightly goal range for patient based on inpatient targets and co-morbidities. Therefore Basal insulin will be restarted at 10 units twice daily (hold if blood sugar under 140 mg/L) * Post-prandial BSGs did increase yesterday. Restart at weight-based stress of 2 for right now as patient appears to retain significant insulin secretion. * Total daily dose is currently unknown. Monitor closely. PLAN FOR INPATIENT GLYCEMIC CONTROL: * Restarting Lantus 10 units SQ BID (hold if blood sugar under 140 mg/dL) * Start correction factor of 30 mg/dl/unit * Start carb ratio of 1 unit per 10 grams CHO consumed * Continuing goal range of Low 110 mg/dL - High 140 mg/dL RECOMMENDATIONS FOR DISCHARGE: * Patient's HbA1C is well controlled. Recommend periodic monitoring with dietary changes. * Please note that the plan above was derived based on current level of insulin resistance and hospital stress. These recommendations are appropriate for inpatient admission only. Plan of care upon discharge will need to be reassessed to avoid potential outpatient hypo/hyperglycemia. Thank you.
--- NOTE | 2018-10-30 18:55 | Hospitalist Progress Note ---
Date of Service October 30, 2018 Assessment & Plan (1) Acute respiratory failure: (2) COPD exacerbation: Due to COPD exacerbation possibly trigger by an environmental allergen (throat was tight and mowing grass when started to feel poorly) vs infectious trigger. CXR on admission showed reticulonodular interstitial thickening with an upper lung zone predominance. S/P intubated and extubated Continue solumedrol and abx with Rocephin and Levaquin Continue neb treatment Continue monitor (3) Tobacco abuse: Counseling on smoking cessation (4) Chronic pain: pain pump RLQ PDMP reviewed gets Dilaudid for pain pump; daily Morphine equivalent is 15.67 (5) DVT prophylaxis: Lovenox CODE STATUS FULL CODE Disposition Possible discharge home tomorrow Subjective Pt was seen and examined Sitting in chair with no distress Pt said that breathing feels much better He said that his coughing up yellowish phlegm he said that he uses oxygen with exertion as baseline Denies any chest pain, palpitation and SOB Physical Exam Physical Exam: General- No acute distress Head- atraumatic Eyes- PERRL, EOMI, ENT- oropharynx clear Neck- supple, no JVD Lungs- diminished BS Heart- regular rhythm; no murmur Abdomen- normal bowel sounds, soft, nontender Extremities- no calf tenderness Neuro- alert, oriented x 3; PERRL, EOMI; no facial palsy; no dysarthria Skin- warm & dry Results & Data Vital Signs (Past 12 Hours) Vital Signs Temp Pulse Pulse Resp BP Pulse Ox 10/30/18 15:45 36.5 C 68 16 113/65 99 10/30/18 15:11 58 L 18 96 10/30/18 11:33 36.4 C L 70 18 107/67 98 10/30/18 10:58 62 18 98 10/30/18 07:09 72 18 98 10/30/18 07:05 36.5 C 64 18 107/57 L 99
[2018-10-30] MEDS: cefTRIAXone SODIUM 1,000 MG in DEXTROSE 5% 50 ML IV SCH (20:06)
[2018-10-30] MEDS: LEVOFLOXACIN/D5W 750 MG/150 ML BAG IV SCH (20:06)
[2018-10-31] MEDS: methylPREDNISolone 40 MG in SYRINGE 0 ML IV SCH ×3 (03:13→17:20)
[2018-10-31 07:06] LABS: BUN Creatinine Ratio 29.7 (10-20); Calcium 8.7 mg/dl (8.5-10.1); Creatinine Clr Calc Pharmacy 166.4 ml/min; Est GFR (African American) 141.8; Est GFR (Non-African American) 122.3; Magnesium 2.1 mg/dl (1.8-2.4); Potassium 4.3 mmol/L (3.5-5.1)
[2018-10-31] MEDS: ALBUT/IPRATROP 3MG/0.5MG NEB 3 ML VIAL NEB SCH ×3 (07:12→14:55)
[2018-10-31] MEDS: INSULIN GLARGINE SOLOSTAR 100 UNITS/ML 3 ML PEN SC SCH (08:37)
[2018-10-31] MEDS: INSULIN ASPART 100 UNITS/ML 3 ML PEN SC SCH ×3 (08:37→17:03)
[2018-10-31] MEDS: NICOTINE 21 MG/24 HR TDSY TD SCH (08:38)
[2018-10-31] MEDS: ENOXAPARIN INJ 40 MG/0.4 ML SYR SQ SCH (08:39)
--- NOTE | 2018-10-31 08:44 | XRay Report ---
XR chest 1V portable HISTORY: Shortness of breath. COMPARISON: Chest 10/30/2018. FINDINGS: Mild diffuse reticulonodular interstitial thickening is again noted. No new focal lung cons olidations. No pleural effusions. No pneumothorax. The heart is normal in size. IMPRESSION: No change in the mild reticulonodular interstitial thickening. Electronically signed by: Rodrigo Hobbs M.D. 10/31/2018 8:42 AM
[2018-10-31 08:59] LABS: Hematocrit (blood only) 39.8 % (42-52); Hemoglobin 12.8 g/dL (14.0-18.0); Mean Corpuscular Hgb Conc 32.2 g/dL (32-36); Mean Platelet Volume 9.6 fL (7.4-10.4); Platelet Count 234 K/uL (130-400); RDW Coefficient of Variation 13.5 % (11.5-14.5); RDW Standard Deviation 44.5 fL (36.4-46.3); Red Blood Count 4.42 M/uL (4.7-6.1); White Blood Count 17.98 K/uL (4.8-10.8)
--- NOTE | 2018-10-31 14:11 | Pharmacy Report ---
Glycemic Control Progress Note - Date of Service October 31, 2018 - Scope Glycemic Pharmacist consulted for glycemic control to write orders per [facility] inpatient glycemic control protocol. - Objective Accuchecks BSG(last 24 hours):: 10/30/18 10/30/18 10/31/18 16:30 20:22 05:48 Glucose 110 H POC Glucose 138 H 245 H 10/31/18 10/31/18 07:45 11:21 Glucose POC Glucose 123 H 116 H HbA1c:: Hemoglobin A1c 6.0 % (4.5-5.6) H 10/29/18 04:53 - Recent Pertinent Medications The patient is currently receiving: * Basal insulin: Lantus 10 units every 12 hours (hold if below 120 mg/dL) * Correctional Insulin: Novolog Correction per scale ACHS Goal Range: Low 110 mg/dL - High 140 mg/dL Correction Factor: 30 mg/dL/unit * Prandial insulin: Per carb ratio of 1 unit per 10 grams CHO consumed - Outpatient Anti-Diabetic Meds None - Assessment & Plan ASSESSMENT: * See progress note from 10/29/18 for more background info, in short: * Pt receiving SQ basal bolus insulin regimen for hyperglycemia secondary to baseline DM (outpatient regimen on hold),stress/infection (pulmonary infection on Rocephin and Levaquin), and Solu-Medrol 40 mg IV q12 hours. * Patient is currently receiving an average of 39 units of insulin per day * 20 units of basal insulin * 19 units of prandial/correctional insulin * BSGs ranging 138 - 245 mg/dl over the past 24hrs * Changes needed to insulin regimen: * AM Fasting BSG = 123 mg/dl. This is in goal range for patient based on inpatient targets and co-morbidities. Therefore Basal insulin will be continued. Increase cut off point for holding of insulin. Currently insulin is split 50/50 basal/bolus. With steroids, it is desirable to split 40/60 basal/bolus. Therefore decrease basal dosing for now and tighten CR. * Post-prandial BSGs are elevated after each in range blood sugar. This happens are the patient eats. Carbohydrate coverage is not sufficient. Therefore tighten carbohydrates. * Total daily dose = ~40-50 units. PLAN FOR INPATIENT GLYCEMIC CONTROL: * Continuing Lantus 10 units SQ BID (hold if bsg less than 140 mg/dL) * Continuing correction factor of 30 mg/dl/unit * TIGHTENING carb ratio to 1 unit per 7 grams CHO consumed * Continuing goal range of Low 110 mg/dL - High 140 mg/dL RECOMMENDATIONS FOR DISCHARGE: * Patient's HbA1C is well controlled as an outpatient. Recommend dietary recommendations and lifestyle modifications. Monitor patient closely. * Please note that the plan above was derived based on current level of insulin resistance and hospital stress. These recommendations are appropriate for inpatient admission only. Plan of care upon discharge will need to be reassessed to avoid potential outpatient hypo/hyperglycemia. Thank you.
--- NOTE | 2018-10-31 16:29 | Hospitalist Progress Note ---
Date of Service October 31, 2018 Assessment & Plan (1) Acute respiratory failure: (2) COPD exacerbation: Due to COPD exacerbation possibly trigger by an environmental allergen (throat was tight and mowing grass when started to feel poorly) vs infectious trigger. CXR on admission showed reticulonodular interstitial thickening with an upper lung zone predominance. S/P intubated and extubated Will change IV Solumedrol to prednisone taper course Will change abx to oral Levaquin Continue neb treatment Continue monitor (3) Tobacco abuse: Counseling on smoking cessation Elevated WBC Possible related to steroid Blood cx, sputum cx and bronch lavage negative Afebrile (4) Chronic pain: pain pump RLQ PDMP reviewed gets Dilaudid for pain pump; daily Morphine equivalent is 15.67 (5) DVT prophylaxis: Lovenox CODE STATUS FULL CODE Disposition Possible discharge home today Follow up with your PCP in 1 week Subjective Pt was seen and examined Lying in bed with no distress Pt said that he feels much better He said that his cough improves He said that he has been off the oxygen while sitting watching TV I encourage him to use the oxygen with ambulation Denies any chest pain, palpitation, dizziness and SOB Physical Exam Physical Exam: General- No acute distress Head- atraumatic Eyes- PERRL, EOMI, ENT- oropharynx clear Neck- supple, no JVD Lungs- diminished BS Heart- regular rhythm; no murmur Abdomen- normal bowel sounds, soft, nontender Extremities- no calf tenderness Neuro- alert, oriented x 3; PERRL, EOMI; no facial palsy; no dysarthria Skin- warm & dry Results & Data Vital Signs (Past 12 Hours) Vital Signs Temp Pulse Pulse Resp BP Pulse Ox 10/31/18 15:16 36.6 C 65 18 133/82 98 10/31/18 14:57 83 20 95 10/31/18 11:40 36.8 C 60 18 124/63 99 10/31/18 11:16 18 95 10/31/18 07:33 36.9 C 56 L 16 115/68 98 10/31/18 07:13 59 L 18 92
--- NOTE | 2018-11-01 07:38 | Discharge Summary ---
Date of Service October 31, 2018 Admission HPI Per Admitting Provider This is 58 yr old M who has a known PMH of COPD, tobacco abuse, chronic back pain with pain pump who presents to [facility] ED in acute respiratory distress. Pt was at home when approx at 8am he developed worsening SOB. His SOB started yesterday. Son at home contacted EMS. He received multiple nebulizer tx and methylprednisolone inj 125mg while in field. Place on CPAP with no relief. When arrived at ED he was still noticably dyspneic despite 2 rounds of duonebs which prompted staff to intubate. Hx obtain from . Unable to obtain hx or ROS from patient. According to this isn't, "new." He has required multiple hospitalization in past 3-4 years at [facility] due to acute respiratory failure and PNA, but never required intubation. denies pt has pmh of HTN, T2DM, CAD, CVA. He lives at home with , ND, +tobacco abuse for 40 years, 1ppd, no elicit drug use Past surgeries including T6-7 laminectomy, cholecystectomy, hernia repair, pain pump FH: Mother and father both still living. Mother +HTN and DM; Father PMH unknown Admission Exam Per Admitting Provider Gen: WD/WN, M, lying in bed, + Intubated Head: Normocephalic, Atraumatic Eyes: Sclera normal, no conjunctival injection ENT: +ET Tube, unable to assess oropharnyx Neck: no JVD, Bruit, trachea midline Resp: chest normal to inspection. Clear to auscultation b/l with diminished breath sounds b/l, +intubated. Normal insp/exp effort, no accessory muscle use CV: tachycardic rate, regular rhythm, no murmur, rub, gallop, or ectopy Abd: RLQ scar noted, palpable device consistent with pain pump, +BS x 4, soft, nontender, nondistended Musculoskeletal:extremities x 4 normal to inspection Extremities: No edema bilaterally Skin: warm, moist, no rash, negative turgor, cap refill < 2sec Neuro: sedated, intubated doesn't respond to verbal stimuli : deferred Principal Diagnosis Acute respiratory failure COPD exacerbation Tobacco abuse Chronic pain Discharge Exam General- No acute distress Head- atraumatic Eyes- PERRL, EOMI, ENT- oropharynx clear Neck- supple, no JVD Lungs- diminished BS Heart- regular rhythm; no murmur Abdomen- normal bowel sounds, soft, nontender Extremities- no calf tenderness Neuro- alert, oriented x 3; PERRL, EOMI; no facial palsy; no dysarthria Skin- warm & dry Discharge Data Allergies Allergy/AdvReac Type Severity Reaction Status Date / Time Penicillins Allergy Unknown Verified 10/28/18 12:06 Consultations 10/28/18 11:19 ED Decision to Admit Stat 10/28/18 13:47 Consult Case Management - Discharge Planning Routine Consult Railroad Watchman Routine 10/28/18 15:44 Consult Health Information Management Routine Ordered Studies 10/28/18 11:30 CT angio chest PE protocol Stat XR chest 1V portable CLINICAL HISTORY: Shortness of breath COMPARISON STUDY: No previous studies for comparison. FINDINGS: The heart is normal in size. There is reticulonodular interstitial thickening with an upper lung zone predominance. This is of uncertain chronicity. There is no failure. There are no pleural effusions.[ IMPRESSION: Reticulonodular interstitial thickening with an upper lung zone predominance. Electronically signed by: Zi Hansen M.D. 10/28/2018 11:23 AM Dictated: 10/28/18 1122 Transcribed: 10/28/18 1122 XR chest 1V portable HISTORY: ETT placement COMPARISON: Chest 10/28/2018. FINDINGS: The endotracheal tube terminates approximate 5 cm from the feliciano. No pneumothorax. No pleural effusions. The heart is normal in size. Mild diffuse interstitial thickening is again noted. This demonstrates an upper lobe predominant reticulonodular pattern. IMPRESSION: 1. Endotracheal tube terminates 5 cm from the feliciano. 2. Reticulonodular interstitial thickening with upper lobe predominance. This could be due to chronic interstitial process or an atypical pneumonitis. Electronically signed by: Rodrigo Hobbs M.D. 10/28/2018 11:19 AM Dictated: 10/28/18 1117 Transcribed: 10/28/18 1117 CHEST CTA for PULMONARY ARTERIES CT DOSE: 526.04 mGycm HISTORY: Shortness of breath. TECHNIQUE: Multiaxial CT images of the chest were performed following the intravenous administration of contrast to evaluate the pulmonary arteries. Maximal intensity projection images were also obtained. A dose lowering technique was utilized adhering to the principles of ALARA. COMPARISON STUDY: None. FINDINGS: An intrathecal catheter is identified. The tip is looped at the T12 level. Endotracheal tube terminates 4 cm from the feliciano. Posterior fusion defect at T8. No suspicious lytic or blastic osseous lesions. Punctate calcification within the right hepatic lobe. The visualized spleen and adrenal glands are unremarkable. No pleural or pericardial effusions. The heart is normal in size. Normal esophagus. Multiple mildly enlarged mediastinal and bilateral hilar lymph nodes. Dominant subcarinal lymph node measures 2.2 x 1.3 cm. Dominant hilar lymph node on the right measures 1.4 x 1.2 cm. Normal caliber thoracic aorta with no evidence for dissection. Nondiagnostic evaluation of the left lower lobe subsegmental pulmonary arteries due to the respiratory motion. Otherwise, no filling defects within the remaining pulmonary arteries to suggest pulmonary embolus. No pneumothorax. Diffuse tree-in-bud nodular opacities seen throughout the lungs with mild interstitial thickening. This demonstrates an upper lobe predominance mild emphysema. Linear area of consolidation/atelectasis right upper lobe anteriorly. Partial opacification of the left lower lobe bronchi and bronchus intermedius with a small amount of mucoid material. IMPRESSION: 1. No evidence for pulmonary embolus. 2. Mild mediastinal and bilateral hilar lymphadenopathy. There is also diffuse tree-in-bud nodular opacities demonstrating an upper lobe predominance and a linear area of consolidation within the right upper lobe anteriorly. This is nonspecific and can be seen in the setting of sarcoidosis, an atypical infectious process, or a panbronchiolitis. Bronchoscopy is recommended for further evaluation. 3. Small amount of mucoid material within the bronchi. 4. Emphysema. 5. Endotracheal tube terminates 4 cm from the feliciano. 6. An intrathecal catheter tip is looped at the T12 level. Electronically signed by: Rodrigo Hobbs M.D. 10/28/2018 1:02 PM Dictated: 10/28/18 1242 Transcribed: 10/28/18 1242 XR KUB/Abdomen 1 view CLINICAL HISTORY: Verify OGT placement tube position COMPARISON STUDY: No previous studies for comparison. FINDINGS: Nasogastric tube within the distal gastric body. IMPRESSION: Nasogastric tube within the distal gastric body The above report was generated using voice recognition software. It may contain grammatical, syntax or spelling errors. Electronically signed by: Ken Hickman M.D. 10/28/2018 4:25 PM Dictated: 10/28/18 1625 Transcribed: 10/28/18 1625 XR chest 1V portable CLINICAL HISTORY: Respiratory failure COMPARISON STUDY: 10/28/2018 FINDINGS: There is been interval removal of endotracheal tube. There are persistent upper lung predominant reticulonodular opacities. There is no failure. There are no significant pleural effusions.[ IMPRESSION: 1. Stable upper lung zone predominant reticulonodular thickening 2. Interval removal of the endotracheal tube Electronically signed by: Zi Hansen M.D. 10/29/2018 7:30 AM Dictated: 10/29/1829 Transcribed: 10/29/1829 XR chest 1V portable CLINICAL HISTORY: Respiratory failure COMPARISON STUDY: 10/29/2018 FINDINGS: The cardiac and mediastinal contours remain stable. There are stable reticulonodular opacities with an upper lung zone predominance. There is a linear area of subsegmental atelectasis towards the left lung base. IMPRESSION: 1. Stable upper lung zone predominant reticulonodular thickening Electronically signed by: Zi Hansen M.D. 10/30/2018 7:16 AM Dictated: 10/30/18 0715 Transcribed: 10/30/1815 XR chest 1V portable HISTORY: Shortness of breath. COMPARISON: Chest 10/30/2018. FINDINGS: Mild diffuse reticulonodular interstitial thickening is again noted. No new focal lung consolidations. No pleural effusions. No pneumothorax. The heart is normal in size. IMPRESSION: No change in the mild reticulonodular interstitial thickening. Electronically signed by: Rodrigo Hobbs M.D. 10/31/2018 8:42 AM Dictated: 10/31/18 0841 Transcribed: 10/31/18 0841 Hospital Course (1) Acute respiratory failure: (2) COPD exacerbation: Due to COPD exacerbation possibly trigger by an environmental allergen (throat was tight and mowing grass when started to feel poorly) vs infectious trigger. CXR on admission showed reticulonodular interstitial thickening with an upper lung zone predominance. S/P intubated and extubated Will change IV Solumedrol to prednisone taper course Will change abx to oral Levaquin Continue neb treatment Continue monitor (3) Tobacco abuse: Counseling on smoking cessation Elevated WBC Possible related to steroid Blood cx, sputum cx and bronch lavage negative Afebrile (4) Chronic pain: pain pump RLQ PDMP reviewed gets Dilaudid for pain pump; daily Morphine equivalent is 15.67 (5) DVT prophylaxis: Lovenox CODE STATUS FULL CODE Disposition Possible discharge home today Follow up with your PCP in 1 week Total Time Total Time Spent Total Time Spent (In Minutes): 35 minutes Total Time Includes: Examination of the Patient, Discharge Planning, Medication Reconciliation, Communication With Other Providers and Other Discharge Plan Discharge Items Patient Disposition: Home - Self-Care Reason For Visit: SOB Discharge Diagnosis: Acute respiratory failure COPD exacerbation Tobacco abuse Chronic pain Discharge Goals: Decrease discomfort, Improve disease control, Improve function and Increase independence Activity: Resume your previous activity Activity Comment: as tolerated Non-emergency contact: Primary Care Provider Call non-emergency contact if: you have any medication questions and your temperature is above 101 Follow-up/Referrals: Jerson Garcia [Primary Care Provider] - Diet: Regular Addtl Provider Instructions: Follow up with your primary care provider Dr Garcia with 1 week (Please call to schedule for the follow up appointment) Continue oxygen supplement with ambulation and at night during sleep Counseling on smoking cessation Continue prednisone taper course Prescriptions: New prednisone 10 mg tablet 10 mg PO UD Qty: 22 RF: 0 levofloxacin [Levaquin] 750 mg tablet 750 mg PO DAILY 3 Days Qty: 3 RF: 0 guaifenesin 200 mg tablet 200 mg PO Q8H PRN (Reason: congestion and cough) Qty: 21 RF: 0 Continued Trelegy Ellipta 100-62.5-25 mcg Blister With Device 1 inh INHALATION DAILY RF: 0 Stand-Alone Forms: [facility] Discharge Orders: Discharge Order (Routine); Ordered 10/31/18 Ordered By: Yudy Argueta Admission Data Admit Date/Time: 10/28/18 11:40 Attending Provider: Yudy Argueta Admit Provider: Amber Coe Primary Care Provider: Jerson Garcia Other Providers: Amber Coe ; Harshad Gooden Service: Telemetry Other Interventions: Discharge Summary Assessment (RN) Last Done: 10/31/18 16:33 DC Date/Time DO NOT enter until pt leaves facility: 10/31/18 18:12
== END 2018-10-31 18:12 | disposition home or self-care (01) | DRG 167 ==
LOC: ED 10:36 → 1E 11:21 → SUATTDRO 11:40 → 1E 13:02 → 2S 10-29 14:50